=== PATIENT | female | born 1945 | race Caucasian/White ===

== ENCOUNTER → 2016-10-18 | Outpatient (CLI) | payer BC ==
[~2016-10-18] MED LIST: ASCA500 PO; ATOR-22 PO; CALC1TAB9 PO; CHOL100010 PO; CMD5 PO; CYAN10005 PO; DIPH-416 PO; EPP3/2 IM; FERR1TAB23 PO; FLCP TD; MAGN1TAB41 PO; MULT-506 PO; NXM/40 PO; NYSTOIN TOP; OMEG10007 PO; POTA-335 PO; TIZA2CAP PO; WARF-283 PO
[2016-10-18 12:06] LABS: CHOLESTEROL/HDL RATIO 2.2
== END | disposition home or self-care (01) ==
LOC: C.LAB 09:32
PROVIDERS: ATTEND Internal Medicine Cardiovascular Disease
DX: E78.5 Hyperlipidemia, unspecified (principal)

== ENCOUNTER → 2016-11-20 | Outpatient (CLI) | payer BC ==
[2016-11-20 09:56] LABS: BASO % 0.2 %; BASO ABS # 0.02 K/uL (0-0.2); COMPLETE YES; EOS % 1.6 %; HEMATOCRIT 39.7 % (37-47); IG% 0.1 %; LYMPH % 33.9 %; LYMPH ABS # 2.81 K/uL (1.2-3.4); MEAN CELL VOLUME 85.6 fL (80-100); MEAN CORPUSCULAR HEMOGLOBIN 28.2 pg (25-34); MEAN PLATELET VOLUME 10.6 fL (7.4-10.4); MONO % 6.2 %; PLATELET COUNT 230 K/uL (130-400); RED BLOOD COUNT 4.64 M/uL (4.2-5.4); WHITE BLOOD COUNT 8.29 K/uL (4.8-10.8)
[2016-11-20 10:32] LABS: ALT/SGPT 29 U/L (12-78); AST/SGOT 16 U/L (15-37); BLOOD UREA NITROGEN 22 mg/dl (7-18); BUN/CREATININE RATIO 25.2 (10-20); CALCIUM 9.3 mg/dl (8.5-10.1); CARBON DIOXIDE 27 mmol/L (21-32); CHLORIDE 107 mmol/L (98-107); CHOLESTEROL 145 mg/dl (0-200); CREATININE 0.88 mg/dl (0.60-1.20); GLUCOSE 86 mg/dl (70-99); POTASSIUM 4.3 mmol/L (3.5-5.1); SODIUM 142 mmol/L (136-145); TRIGLYCERIDES 206 mg/dl (0-150); VERY LOW DENSITY LIPOPROT CALC 41 mg/dl
[2016-11-20 10:35] LABS: ALB/GLOB RATIO 0.9 (0.9-2); ALKALINE PHOSPHATASE 43 U/L (45-117); CHOLESTEROL/HDL RATIO 2.9; HDL CHOLESTEROL 50 mg/dl; LDL CHOLESTEROL CALCULATED 54 mg/dl
[2016-11-20 11:07] LABS: ESTIMATED AVERAGE GLUCOSE 123 mg/dl; HA1C FLAG Normal (Normal)
== END | disposition home or self-care (01) ==
LOC: C.LAB 09:15
PROVIDERS: ATTEND Internal Medicine
DX: E53.8 Deficiency of other specified B group vitamins (principal); E55.9 Vitamin D deficiency, unspecified; E78.1 Pure hyperglyceridemia; K50.90 Crohn's disease, unspecified, without complications; R73.9 Hyperglycemia, unspecified

== ENCOUNTER → 2017-03-23 | Outpatient (CLI) | payer BC ==
[2017-03-23 10:15] LABS: CHOLESTEROL/HDL RATIO 2.6
== END | disposition home or self-care (01) ==
LOC: C.LAB 08:51
PROVIDERS: ATTEND Internal Medicine Cardiovascular Disease
DX: E78.5 Hyperlipidemia, unspecified (principal)

== ENCOUNTER → 2017-06-15 | Outpatient (CLI) | payer BC ==
--- NOTE | 2017-06-15 14:15 | MAMMOGRAPHY REPORT ---
BILATERAL DIGITAL SCREENING MAMMOGRAM TOMOSYNTHESIS WITH CAD: 06/15/2017 CLINICAL HISTORY: Routine screening. TECHNIQUE: Breast tomosynthesis in addition to standard 2D mammography was performed. Current study was also evaluated with a Computer Aided Detection (CAD) system. COMPARISON: Comparison is made to exams dated: 06/12/2016 mammogram, 06/19/2015 ultrasound, 5 mammogram, 06/07/2015 mammogram, 06/06/2014 mammogram, and 05/30/2013 mammogram - [facility]. BREAST COMPOSITION: There are scattered areas of fibroglandular density in both breasts. FINDINGS: There are stable benign-appearing microcalcifications bilaterally. No suspicious mass, arc hitectural distortion or cluster of suspicious microcalcifications is seen. IMPRESSION: ACR BI-RADS CATEGORY 1: NEGATIVE There is no mammographic evidence of malignancy. A 1 year screening mammogram is recommended. The pa tient will receive written notification of the results. Approximately 10% of breast cancers are not detected with mammography. A negative mammographic report should not delay biopsy if a clinically suggestive mass is present. Svitlana Gusman M.D. ay/:06/15/2017 09:39:29 Center Human Resources Manager: Kenny VINES(Per)(M), [facility] letter sent: Normal 1/2 BI-RADS Code: ACR BI-RADS Category 1: Negative
== END | disposition home or self-care (01) ==
LOC: C.MAMM 09:11
PROVIDERS: ATTEND Obstetrics & Gynecology
DX: Z12.31 Encounter for screening mammogram for malignant neoplasm of breast (principal)

== ENCOUNTER → 2017-09-28 | Outpatient (CLI) | payer BC ==
[~2017-09-28] MED LIST changes: -CMD5 PO; +WARF5TAB7 PO
== END | disposition home or self-care (01) ==
LOC: C.PAPS 14:00
PROVIDERS: ATTEND Obstetrics & Gynecology
DX: Z01.419 Encounter for gynecological examination (general) (routine) without abnormal findings (principal)

== ENCOUNTER → 2017-10-12 | Outpatient (CLI) | payer BC | END | disposition home or self-care (01) | LOC: C.LAB 09:23 | PROVIDERS: ATTEND Internal Medicine Cardiovascular Disease | DX: E78.5 Hyperlipidemia, unspecified (principal) ==

== ENCOUNTER → 2017-11-17 | Outpatient (CLI) | payer BC ==
[2017-11-17 10:09] LABS: BASO % 0.3 %; BASO ABS # 0.02 K/uL (0-0.2); EOS % 1.1 %; EOS ABS # 0.08 K/uL (0-0.5); HEMATOCRIT 45.1 % (37-47); HEMOGLOBIN 14.9 g/dL (12.0-16.0); IG# 0.01 K/uL (0.00-0.02); LYMPH ABS # 2.97 K/uL (1.2-3.4); MEAN CELL VOLUME 88.8 fL (80-100); MEAN CORPUSCULAR HEMOGLOBIN 29.3 pg (25-34); MEAN PLATELET VOLUME 10.7 fL (7.4-10.4); MONO % 5.1 %; MONO ABS # 0.38 K/uL (0.11-0.59); NEUT % 53.4 %; NEUT ABS # 3.96 K/uL (1.4-6.5); PLATELET COUNT 223 K/uL (130-400); RED CELL DISTRIBUTION WIDTH CV 13.7 % (11.5-14.5); RED CELL DISTRIBUTION WIDTH SD 44.7 fL (36.4-46.3); WHITE BLOOD COUNT 7.42 K/uL (4.8-10.8)
[2017-11-17 10:39] LABS: ALBUMIN 3.4 gm/dl (3.4-5.0); ALT/SGPT 29 U/L (12-78); BLOOD UREA NITROGEN 19 mg/dl (7-18); CALCIUM 9.8 mg/dl (8.5-10.1); CARBON DIOXIDE 28 mmol/L (21-32); CHOLESTEROL 166 mg/dl (0-200); CREATININE 0.94 mg/dl (0.60-1.20); GLUCOSE 90 mg/dl (70-99); POTASSIUM 4.6 mmol/L (3.5-5.1); SODIUM 138 mmol/L (136-145)
[2017-11-17 10:42] LABS: ALKALINE PHOSPHATASE 47 U/L (45-117); AST/SGOT 15 U/L (15-37); LDL CHOLESTEROL CALCULATED 56 mg/dl; TOTAL PROTEIN 7.6 gm/dl (6.4-8.2)
== END | disposition home or self-care (01) ==
LOC: C.LAB 09:14
PROVIDERS: ATTEND Internal Medicine
DX: D50.9 Iron deficiency anemia, unspecified (principal); E53.8 Deficiency of other specified B group vitamins; E55.9 Vitamin D deficiency, unspecified; K50.90 Crohn's disease, unspecified, without complications; E78.1 Pure hyperglyceridemia

== ENCOUNTER 2020-12-23 20:31 | Inpatient (IN) ==
[2020-12-23] MEDS ORDERED: ACETAMINOPHEN 500 MG TAB PO STA (21:22)
[2020-12-23 21:28] LABS: Hemoglobin 7.8 g/dL (12.0-16.0); Mean Corpuscular Hemoglobin 29.3 pg (25-34); Mean Corpuscular Hgb Conc 32.5 g/dL (32-36); Mean Corpuscular Volume 90.2 fL (80-100); Mean Platelet Volume 11.6 fL (7.4-10.4); Nucleated RBC # (auto) 0.04 K/uL (0-0); Nucleated RBC % (auto) 0.2 %; Platelet Count 599 K/uL (130-400); RDW Coefficient of Variation 18.9 % (11.5-14.5); RDW Standard Deviation 60.6 fL (36.4-46.3); Red Blood Count 2.66 M/uL (4.2-5.4); White Blood Count 16.78 K/uL (4.8-10.8)
[2020-12-23] MEDS: SODIUM CHLORIDE 0.9% 1000ML 1,000 ML IV ONE ×2 (21:32→22:23)
[2020-12-23 21:40] LABS: Potassium 4.7 mmol/L (3.5-5.1)
[2020-12-23 21:41] LABS: Aspartate Aminotransferase 108 U/L (15-37)
[2020-12-23 21:42] LABS: Alanine Aminotransferase 77 U/L (12-78); Albumin Globulin Ratio 0.3 (0.9-2); Albumin Level 1.8 gm/dl (3.4-5.0); Alkaline Phosphatase 878 U/L (45-117); BUN Creatinine Ratio 21.5 (10-20); Bilirubin,Total 6.5 mg/dl (0.2-1); Blood Urea Nitrogen 45 mg/dl (7-18); Carbon Dioxide 15 mmol/L (21-32); Chloride 105 mmol/L (98-107); Creatinine Clr Calc Pharmacy 24.6 ml/min; Est GFR (African American) 26.2; Est GFR (Non-African American) 22.6; Globulin 5.9 gm/dl (2.5-4.0); Glucose 281 mg/dl (70-99); Sodium 135 mmol/L (136-145); Total Protein 7.7 gm/dl (6.4-8.2); Troponin I < 0.015 ng/ml (0-0.045)
[2020-12-23 22:04] LABS: Basophils # (auto) 0.02 K/uL (0-0.2); Basophils % (auto) 0.1 %; Dohle Bodies 1+; Immature Granulocytes # (auto) 0.96 K/uL (0.00-0.02); Immature Granulocytes % (auto) 5.7 %; Lymphocytes # (auto) 1.89 K/uL (1.2-3.4); Lymphocytes % (auto) 11.3 %; Monocytes # (auto) 1.17 K/uL (0.11-0.59); Neutrophils # (auto) 12.74 K/uL (1.4-6.5); Neutrophils % (auto) 75.9 %; Polychromasia 1+
[2020-12-23] MEDS ORDERED: metroNIDAZOLE 500 MG/100 ML BAG IV STA (22:08)
[2020-12-23] MEDS ORDERED: SODIUM CHLORIDE 0.9% 1000ML 1,000 ML IV ONE (22:08)
[2020-12-23] MEDS ORDERED: CEFEPIME 2,000 MG/20 ML VIAL IV STA (22:08)
--- NOTE | 2020-12-23 22:31 | Emergency Department Note ---
Impression & Plan Sepsis, Anemia, AGUILAR (acute kidney injury), Acidosis, lactic, Jaundice, Acute dehydration ED Provider Note INFORMANT: Patient ED PROVIDER(S): Mario Sethi MD CHIEF COMPLAINT: Weakness PLAN: Disposition: Admitted Condition: Good Outpatient prescription management: none Referral: None MEDICAL DECISION MAKING: Patient presented to emergency department because of weakness. She was febrile and tachycardic. This was concerning due to a history of sepsis. She had no abdominal pain. She notes that she has had a poor appetite and has not been drinking fluids. She states this happens from time to time in between chemotherapy. Clinically she appears dehydrated. An IV was established. Cultures obtained. She was given IV fluids. Blood work revealed a leukocytosis and anemia. The patient's chemistry panel was concerning for acute renal failure with a marked elevation of her creatinine. Her BUN was elevated as well concerning for dehydration. The patient had an elevated lactic acidosis. She was given empiric cefepime and Flagyl. Chest x-ray did not reveal any evidence of pneumonia. LFTs show slight increase in her bilirubin. Catheter urinalysis specimen obtained. Patient will need further management in the hospital. Consultation was made with Dr. Lorenzo Cortes of the [facility] service. He asked for the patient have a consultation with GI. Initially Dr. Mayers was consulted as he was on-call for the ER however the patient has been seen by [facility] in the past. This was discovered on record review. I did discuss the case with Dr. Castellanos. He was concerned about the possibility of a stent problem and asked for the patient be transferred to [facility] as DrJeanne Eckert is out of town and Dr. Castellanos does not have ERCP privileges. I did discuss this with the patient and her . They adamantly refused transfer to [facility] as she would like to stay here for treatment and see if any problems develop. I did note to her as well as her that she could become septic, have stent complications, and and suffer serious complications including by refusing transfer. She and her are understanding these risks and still would like to stay here. I did notify Dr. Cortes. He will evaluate the patient for further management. Triage Nursing notes reviewed and agree them. Vital Signs: reviewed and remarkable for fever and tachycardia Differential diagnosis: Sepsis, UTI, pneumonia, metabolic, electrolyte abnormalities, cardiac sources, intracerebral event, toxicologic, neurologic, as well as other pathologies. Diagnostics interpreted by me: ECG: Twelve-lead ECG reveals sinus tachycardia [address] elevation or depression. No PACs or PVCs. Normal axis and QRS. Cardiac Monitoring: Cardiac monitoring ordered by me: The patient was placed on continuous cardiac monitoring and observed. It revealed a normal sinus rhythm at 92 beats per minute without ectopy or evidence of dysrhythmia. Imaging studies: Chest x-ray. Findings: A chest x-ray was performed and revealed no pneumothorax, effusion, infiltrate, pulmonary edema, free air under the diaphragm, or wide mediastinum. Impression: No acute disease. CT scan of the chest was performed and revealed no evidence of pneumonia, pneumothorax or other acute pathology. CT scan of the abdomen pelvis reveals a biliary stent in place. Abnormalities of the liver noted. Ostomy present. I refer you to the EMR for further details. HPI: The patient is a 75 year old female with a history of gallbladder cancer who presents to the Emergency Room with complaints of weakness. This started over the last few days and is worsening tonight to the point where she could not walk up the steps. The patient also notes the following associated symptoms, dry mouth, poor oral intake. Patient is on alternating weeks of chemotherapy. This was her off week. The patient has found no relieving factors. Current pain is rated as 0/10. Patient has a history of sepsis from urinary source. Sh anoop does have a biliary stent in place. She notes her bilirubin numbers have been decreasing. She has had no abdominal pain. She finished a course of Levaquin and Flagyl about 2 weeks ago for the previous sepsis. Pt denies LOC, headache, fevers, chills, diaphoresis, visual changes, neck pain, chest pain, breathing difficulties, nausea, vomiting, abdominal pain, back pain, melena, hematochezia, new urinary symptoms, numbness, lymphadenopathy, rash, or other complaints. ROS: See above HPI for pertinent positives & negatives. A total of 10 systems reviewed and were otherwise negative. PAST MEDICAL HISTORY:See Below , gallbladder cancer, sepsis, anemia PAST SURGICAL HISTORY:See Below, biliary stent FAMILY HISTORY:See Below SOCIAL HISTORY:See Below, HOME MEDICATIONS:See Below ALLERGIES:See Below VITALS:See Below PHYSICAL EXAMINATION: GENERAL: Awake, alert, jaundiced-appearing, dehydrated, in no distress HENT: Normocephalic, atraumatic. Oropharynx unremarkable Except for dry mucous membranes EYES: Normal conjunctiva. Sclera non-icteric. NECK: Inspection normal. Non-tender. Supple. No nuchal rigidity. FROM. No masses. RESPIRATORY: Clear to auscultation. No wheezes. No rales. Normal respiratory effort. CARDIAC: Tachycardic rate. Normal rhythm. No murmurs. No rubs. Extremities warm and well perfused. Pulses equal. No JVD. GI: Soft, non-distended. No tenderness to palpation. No rebound or guarding. No masses. RECTAL: Deferred. MUSCULOSKELETAL: Atraumatic. Chest examination reveals no tenderness. The back is symmetrical on inspection without obvious abnormality. There is no CVA tenderness to palpation. No joint edema. LOWER EXTREMITIES: Calves are equal size bilaterally and non-tender. No edema. No discoloration. NEURO: Normal sensorium. No sensory or motor deficits noted. SKIN: No rash. Moderate jaundice noted. CRITICAL CARE: I have personally spent greater than 40 minutes of critical care time in the direct management of this patient. This includes bedside care, interpretation of diagnostic studies, and testing, discussion with consultants, patient, and family members, and other required patient management activities. This 30 minutes is in excess of all separately billable procedures. Mario Sethi MD Past Med/Surg History Medical History (Updated 12/23/20 @ 22:25 by Mario Sethi MD) Basal cell carcinoma of skin Cerebral infarction Cervical radiculopathy Hepatitis C virus Nummular eczema Surgical History H/O abdominal surgery History of oral surgery tooth extraction S/P appendectomy S/P shoulder surgery Family History Father Myocardial infarction Gastric cancer Mother Atrial fibrillation Congestive heart failure Other Cancer Diabetes Denies family history of Ovarian cancer Prostate cancer Breast cancer Colorectal cancer Social History Smoking Status: Never smoker Hx Alcohol Use: Yes Hx Substance Use: No Preferred Language: Greek Visual Impairment: No Limitations Hearing Ability: Normal Plastic Shaper Required: No Beliefs That Will Affect Care: None marital status: Current Living Situation: Spouse current occupational status: retired Feels Safe at Home: Yes Childhood Exposure to Second-Hand Smoke: Yes Dental Care, Regularly: Yes Physical Activity Frequency: Daily Seatbelt Use: always Sunscreen Use: Yes Allergies Allergies Allergy/AdvReac Type Severity Reaction Status Date / Time Iodinated Contrast Media Allergy Severe Shortness Verified 12/23/20 21:30 of Breath bee venom protein (honey bee) Allergy Intermediate DYSPNEA/SWE Verified 12/23/20 21:30 LLING Penicillins Allergy Intermediate DYSPNEA/RENEA Verified 12/23/20 21:30 PHORESIS tramadol Allergy Unknown Nauseated Verified 12/23/20 21:30 codeine AdvReac Intermediate NAUSEA/VOMITING Verified 12/23/20 21:30 (TOLERATES VICODIN) oxycodone AdvReac Intermediate NAUSEA/VOMITING Verified 12/23/20 21:30 (TOLERATES VICODIN) sulfite AdvReac Intermediate GI sxs Verified 12/23/20 21:30 Home Meds Home Medications Medication Instructions Recorded Confirmed ascorbic acid (vitamin C) 500 mg PO DAILY #0 01/31/10 12/23/20 ferrous sulfate 325 mg PO TIDM #0 03/21/15 12/23/20 cholecalciferol (vitamin D3) 125 5,000 units PO DAILY 09/15/18 12/23/20 mcg (5,000 unit) capsule riboflavin (vitamin B2) 50 mg 50 mg PO QAM 09/08/19 12/23/20 tablet hydromorphone 2 mg PO Q4 PRN 11/11/20 12/23/20 ondansetron 4 mg PO Q4 PRN 11/11/20 12/23/20 atorvastatin 40 mg tablet 20 mg PO HS tab 12/12/20 12/23/20 calcium carbonate 500 mg (1,250 2 tab PO BID 12/12/20 12/23/20 mg)-vitamin D3 200 unit tablet cyanocobalamin (vitamin B-12) 1,000 mcg PO 5XWK #0 tab 12/12/20 12/23/20 1,000 mcg tablet magnesium oxide 400 mg (241.3 mg 400 mg PO TID #0 tab 12/12/20 12/23/20 magnesium) tablet multivitamin with minerals 1 tab PO BID tab 12/12/20 12/23/20 potassium chloride 20 mEq 20 meq PO BID tab 12/12/20 12/23/20 tablet,extended release(part/cryst) esomeprazole magnesium 40 mg PO QAM 12/23/20 12/23/20 rivaroxaban 10 mg PO QPM 12/23/20 12/23/20 Previous Rx's Medication Instructions Recorded epinephrine 0.3 mg/0.3 mL 0.3 mg IM Q4H PRN #1 ea 09/03/20 injection, auto-injector Results & Data (ED) Vital Signs Vital Signs - 24 hr 12/23/20 20:23 12/23/20 20:36 12/23/20 20:41 Temperature 39.5 C H Temperature Source Oral Pulse Rate 127 H 123 H 124 H Pulse Rate from SpO2 Sensor Pulse Rhythm Regular Pulse Strength Normal Respiratory Rate 22 46 H 35 H Respiratory Effort / Characteristics Non-Labored Respiratory Depth Normal Respiratory Pattern Regular Blood Pressure 130/61 130/61 Blood Pressure Mean 84 84 Pulse Oximetry 96 Oxygen Delivery Method Room Air Oxygen Flow Rate Sepsis Recent Fever Within 48 Hours Yes Sepsis New/Unexplained Change in Mental Status No Sepsis Action Taken by Nursing No Action Required 12/23/20 20:50 12/23/20 20:53 12/23/20 21:00 Temperature Temperature Source Pulse Rate 117 H 113 H Pulse Rate from SpO2 Sensor 167 H 114 H Pulse Rhythm Pulse Strength Respiratory Rate 30 H 39 H Respiratory Effort / Characteristics Respiratory Depth Respiratory Pattern Blood Pressure Blood Pressure Mean Pulse Oximetry 80 L 97 Oxygen Delivery Method Room Air Oxygen Flow Rate 98 Sepsis Recent Fever Within 48 Hours Sepsis New/Unexplained Change in Mental Status Sepsis Action Taken by Nursing 12/23/20 21:10 12/23/20 21:20 12/23/20 21:30 Temperature Temperature Source Pulse Rate 145 H 108 H Pulse Rate from SpO2 Sensor 114 H 108 H Pulse Rhythm Pulse Strength Respiratory Rate 35 H 33 H 16 Respiratory Effort / Characteristics Respiratory Depth Respiratory Pattern Blood Pressure Blood Pressure Mean Pulse Oximetry 94 98 Oxygen Delivery Method Oxygen Flow Rate Sepsis Recent Fever Within 48 Hours Sepsis New/Unexplained Change in Mental Status Sepsis Action Taken by Nursing 12/23/20 21:40 12/23/20 21:50 12/23/20 22:00 Temperature Temperature Source Pulse Rate 107 H 101 H 100 H Pulse Rate from SpO2 Sensor 106 H 100 H 99 H Pulse Rhythm Pulse Strength Respiratory Rate 30 H 35 H 36 H Respiratory Effort / Characteristics Respiratory Depth Respiratory Pattern Blood Pressure Blood Pressure Mean Pulse Oximetry 95 95 95 Oxygen Delivery Method Oxygen Flow Rate Sepsis Recent Fever Within 48 Hours Sepsis New/Unexplained Change in Mental Status Sepsis Action Taken by Nursing 12/23/20 22:10 12/23/20 22:20 12/23/20 22:30 Temperature Temperature Source Pulse Rate 95 H 97 H 93 H Pulse Rate from SpO2 Sensor 96 H 97 H 93 H Pulse Rhythm Pulse Strength Respiratory Rate 37 H 31 H 34 H Respiratory Effort / Characteristics Respiratory Depth Respiratory Pattern Blood Pressure 132/65 Blood Pressure Mean 87 Pulse Oximetry 95 96 95 Oxygen Delivery Method Oxygen Flow Rate Sepsis Recent Fever Within 48 Hours Sepsis New/Unexplained Change in Mental Status Sepsis Action Taken by Nursing 12/23/20 22:31 12/23/20 22:40 12/23/20 22:45 Temperature Temperature Source Pulse Rate 94 H 100 H Pulse Rate from SpO2 Sensor 101 H 95 H 96 H Pulse Rhythm Pulse Strength Respiratory Rate 27 H 31 H 30 H Respiratory Effort / Characteristics Respiratory Depth Respiratory Pattern Blood Pressure 121/61 Blood Pressure Mean 81 Pulse Oximetry 94 91 88 L Oxygen Delivery Method Oxygen Flow Rate Sepsis Recent Fever Within 48 Hours Sepsis New/Unexplained Change in Mental Status Sepsis Action Taken by Nursing 12/23/20 22:50 12/23/20 23:00 12/23/20 23:01 Temperature Temperature Source Pulse Rate 93 H 108 H 96 H Pulse Rate from SpO2 Sensor Pulse Rhythm Pulse Strength Respiratory Rate 30 H 27 H 30 H Respiratory Effort / Characteristics Respiratory Depth Respiratory Pattern Blood Pressure 151/68 H Blood Pressure Mean 95 Pulse Oximetry Oxygen Delivery Method Oxygen Flow Rate Sepsis Recent Fever Within 48 Hours Sepsis New/Unexplained Change in Mental Status Sepsis Action Taken by Nursing 12/23/20 23:10 12/23/20 23:15 12/23/20 23:20 Temperature Temperature Source Pulse Rate 90 88 87 Pulse Rate from SpO2 Sensor 90 87 87 Pulse Rhythm Pulse Strength Respiratory Rate 29 H 29 H 25 H Respiratory Effort / Characteristics Respiratory Depth Respiratory Pattern Blood Pressure 120/60 Blood Pressure Mean 80 Pulse Oximetry 95 96 95 Oxygen Delivery Method Oxygen Flow Rate Sepsis Recent Fever Within 48 Hours Sepsis New/Unexplained Change in Mental Status Sepsis Action Taken by Nursing 12/23/20 23:30 12/23/20 23:31 12/23/20 23:40 Temperature Temperature Source Pulse Rate 92 H 94 H 112 H Pulse Rate from SpO2 Sensor 92 H 94 H Pulse Rhythm Pulse Strength Respiratory Rate 22 21 34 H Respiratory Effort / Characteristics Respiratory Depth Respiratory Pattern Blood Pressure 101/68 Blood Pressure Mean 79 Pulse Oximetry 96 96 Oxygen Delivery Method Oxygen Flow Rate Sepsis Recent Fever Within 48 Hours Sepsis New/Unexplained Change in Mental Status Sepsis Action Taken by Nursing 12/23/20 23:41 12/23/20 23:42 12/23/20 23:45 Temperature Temperature Source Pulse Rate Pulse Rate from SpO2 Sensor Pulse Rhythm Pulse Strength Respiratory Rate Respiratory Effort / Characteristics Respiratory Depth Respiratory Pattern Blood Pressure 128/62 132/61 133/64 Blood Pressure Mean 84 84 87 Pulse Oximetry Oxygen Delivery Method Oxygen Flow Rate Sepsis Recent Fever Within 48 Hours Sepsis New/Unexplained Change in Mental Status Sepsis Action Taken by Nursing 12/24/20 00:00 12/24/20 00:22 12/24/20 00:30 Temperature Temperature Source Pulse Rate 92 H Pulse Rate from SpO2 Sensor 92 H Pulse Rhythm Pulse Strength Respiratory Rate 29 H Respiratory Effort / Characteristics Respiratory Depth Respiratory Pattern Blood Pressure 123/70 Blood Pressure Mean 87 Pulse Oximetry 97 Oxygen Delivery Method Room Air Oxygen Flow Rate Sepsis Recent Fever Within 48 Hours Sepsis New/Unexplained Change in Mental Status Sepsis Action Taken by Nursing Laboratory Data Result diagrams: 12/23/20 20:50 12/23/20 20:50 Lab Results 12/23/20 12/23/20 12/23/20 Range/Units 20:50 20:50 21:34 WBC 16.78 H (4.8-10.8) K/uL RBC 2.66 L (4.2-5.4) M/uL Hgb 7.8 L (12.0-16.0) g/dL Hct 24.0 L (37-47) % MCV 90.2 (80-100) fL MCH 29.3 (25-34) pg MCHC 32.5 (32-36) g/dL RDW Std Deviation 60.6 H (36.4-46.3) fL RDW Coeff of Shai 18.9 H (11.5-14.5) % Plt Count 599 H (130-400) K/uL MPV 11.6 H (7.4-10.4) fL Immature Gran % (Auto) 5.7 % Neut % (Auto) 75.9 % Lymph % (Auto) 11.3 % Rains % (Auto) 7.0 % Eos % (Auto) 0.0 % Baso % (Auto) 0.1 % Neut # (Auto) 12.74 H (1.4-6.5) K/uL Lymph # (Auto) 1.89 (1.2-3.4) K/uL Rains # (Auto) 1.17 H (0.11-0.59) K/uL Eos # (Auto) 0.00 (0-0.5) K/uL Baso # (Auto) 0.02 (0-0.2) K/uL Immature Gran # (Auto) 0.96 H (0.00-0.02) K/uL Absolute Nucleated RBC 0.04 H (0-0) K/uL Nucleated RBC % (auto) 0.2 % Dohle Bodies 1+ Polychromasia 1+ Sodium 135 L (136-145) mmol/L Potassium 4.7 (3.5-5.1) mmol/L Chloride 105 (98-107) mmol/L Carbon Dioxide 15 L (21-32) mmol/L Anion Gap 16.0 H (3-11) BUN 45 H (7-18) mg/dl Creatinine 2.10 H (0.6-1.2) mg/dl Est Cr Clr Drug Dosing 24.6 ml/min Est GFR ( Amer) 26.2 Est GFR (Non-Af Amer) 22.6 BUN/Creatinine Ratio 21.5 H (10-20) Glucose 281 H (70-99) mg/dl Lactate 4.0 H* (0.4-2.0) mmol/L Calcium 10.0 (8.5-10.1) mg/dl Total Bilirubin 6.5 H (0.2-1) mg/dl AST 108 H (15-37) U/L ALT 77 (12-78) U/L Alkaline Phosphatase 878 H (45-117) U/L Troponin I < 0.015 (0-0.045) ng/ml Total Protein 7.7 (6.4-8.2) gm/dl Albumin 1.8 L (3.4-5.0) gm/dl Globulin 5.9 H (2.5-4.0) gm/dl Albumin/Globulin Ratio 0.3 L (0.9-2) COVID-19 Eval Order SARS-CoV-2 (PCR) (Negative) Influenza Type A (PCR) (Neg) Influenza Type B (PCR) (Neg) RSV (RT-PCR) (Neg) 12/23/20 12/23/20 12/23/20 Range/Units 21:40 21:40 23:47 WBC (4.8-10.8) K/uL RBC (4.2-5.4) M/uL Hgb (12.0-16.0) g/dL Hct (37-47) % MCV (80-100) fL MCH (25-34) pg MCHC (32-36) g/dL RDW Std Deviation (36.4-46.3) fL RDW Coeff of Shai (11.5-14.5) % Plt Count (130-400) K/uL MPV (7.4-10.4) fL Immature Gran % (Auto) % Neut % (Auto) % Lymph % (Auto) % Rains % (Auto) % Eos % (Auto) % Baso % (Auto) % Neut # (Auto) (1.4-6.5) K/uL Lymph # (Auto) (1.2-3.4) K/uL Rains # (Auto) (0.11-0.59) K/uL Eos # (Auto) (0-0.5) K/uL Baso # (Auto) (0-0.2) K/uL Immature Gran # (Auto) (0.00-0.02) K/uL Absolute Nucleated RBC (0-0) K/uL Nucleated RBC % (auto) % Dohle Bodies Polychromasia Sodium (136-145) mmol/L Potassium (3.5-5.1) mmol/L Chloride (98-107) mmol/L Carbon Dioxide (21-32) mmol/L Anion Gap (3-11) BUN (7-18) mg/dl Creatinine (0.6-1.2) mg/dl Est Cr Clr Drug Dosing ml/min Est GFR ( Amer) Est GFR (Non-Af Amer) BUN/Creatinine Ratio (10-20) Glucose (70-99) mg/dl Lactate 2.2 H* (0.4-2.0) mmol/L Calcium (8.5-10.1) mg/dl Total Bilirubin (0.2-1) mg/dl AST (15-37) U/L ALT (12-78) U/L Alkaline Phosphatase (45-117) U/L Troponin I (0-0.045) ng/ml Total Protein (6.4-8.2) gm/dl Albumin (3.4-5.0) gm/dl Globulin (2.5-4.0) gm/dl Albumin/Globulin Ratio (0.9-2) COVID-19 Eval Order CovFluRsv at [facility] SARS-CoV-2 (PCR) NEGATIVE (Negative) Influenza Type A (PCR) Negative (Neg) Influenza Type B (PCR) Negative (Neg) RSV (RT-PCR) Negative (Neg) Administered Medications Discontinued Medications Acetaminophen (Acetaminophen 500 Mg Tab) 1,000 mg PO NOW STA Stop: 12/23/20 21:23 Last Admin: 12/23/20 21:33 Dose: 1,000 mg Documented by: [id number] Sodium Chloride (Nss 1000ml) 1,000 mls @ 999 mls/hr IV .Q1H1M ONE Stop: 12/23/20 22:22 Last Infusion: 12/24/20 00:10 Dose: 0 mls/hr Documented by: [id number] Admin: 12/23/20 22:23 Dose: 999 mls/hr Documented by: [id number] Infusion: 12/23/20 22:23 Dose: 999 mls/hr Documented by: [id number] Admin: 12/23/20 21:32 Dose: 999 mls/hr Documented by: [id number] Sodium Chloride (Nss 1000ml) 1,000 mls @ 999 mls/hr IV .Q1H1M ONE Stop: 12/23/20 23:08 Last Admin: 12/24/20 00:11 Dose: 999 mls/hr Documented by: [id number] Cefepime HCl (Maxipime) 2,000 mg in 20 mls @ 5 mls/min IV NOW STA; Protocol Stop: 12/23/20 22:11 Last Admin: 12/23/20 22:23 Dose: 5 mls/min Documented by: [id number] Metronidazole (Flagyl) 500 mg in 100 mls @ 100 mls/hr IV NOW STA Stop: 12/23/20 23:07 Last Infusion: 12/24/20 00:10 Dose: 0 mls/hr Documented by: [id number] Admin: 12/23/20 22:23 Dose: 100 mls/hr Documented by: [id number] Discharge Plan Visit Data Chief Complaint: Weakness Stated Complaint: WEAKNESS ED Provider: Mario Sethi Discharge Problem: Sepsis, Anemia, AGUILAR (acute kidney injury), Acidosis, lactic, Jaundice, Acute dehydration Discharge Instructions Interventions: ED Discharge Assessment Last Done: 12/24/20 00:30 Forms Stand Alone Forms: My [facility] Prescriptions Prescriptions: No Action cholecalciferol (vitamin D3) 5,000 unit capsule 5,000 units PO DAILY RF: 0 riboflavin (vitamin B2) 50 mg tablet 50 mg PO QAM RF: 0 ascorbic acid (vitamin C) 500 mg Tablet 500 mg PO DAILY Qty: 0 RF: 0 ferrous sulfate 325 mg (65 mg iron) Tablet 325 mg PO TIDM Qty: 0 RF: 0 epinephrine [EpiPen] 0.3 mg/0.3 mL auto-injector 0.3 mg IM Q4H PRN (Reason: Allergic Reaction) Qty: 1 RF: 3 cyanocobalamin (vitamin B-12) 1,000 mcg tablet 1,000 mcg PO 5XWK Qty: 0 RF: 0 magnesium oxide 400 mg (241.3 mg magnesium) tablet 400 mg PO TID Qty: 0 RF: 0 potassium chloride 20 mEq tablet,ER particles/crystals 20 meq PO BID RF: 0 hydromorphone 2 mg tablet 2 mg PO Q4 PRN (Reason: Pain) RF: 0 ondansetron 4 mg tablet,disintegrating 4 mg PO Q4 PRN (Reason: Nausea And Vomiting) RF: 0 atorvastatin 40 mg tablet 20 mg PO HS RF: 0 calcium carbonate-vitamin D3 [Calcium 500 + D] 500 mg(1,250mg) -200 unit tablet 2 tab PO BID RF: 0 multivitamin with minerals Tablet 1 tab PO BID RF: 0 esomeprazole magnesium 40 mg capsule,delayed release(DR/EC) 40 mg PO QAM RF: 0 rivaroxaban 10 mg tablet 10 mg PO QPM RF: 0 Referrals Referrals: ProBrayan MD [Primary Care Provider] -
[2020-12-23 22:37] LABS: Influenza A virus by PCR Negative (Neg); Influenza B virus by PCR Negative (Neg); RSV by PCR Negative (Neg); SARS CoV2 RNA(COVID-19) InHosp NEGATIVE (Negative)
--- NOTE | 2020-12-24 00:44 | History & Physical Report ---
Date of Service December 24, 2020 Assessment & Plan Admission and Anticipated Discharge Date Admission Date: 75 yo F w/ pMHx. 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 dehydration - Admit PCU Elevated bilirubin and signs of infection, concern for obstruction although this may represent dehydration or a mixed picture febrile 39.5, WBC 16.78, Lactate 2.2, t bili 6.5, ast 108 case discussed with GI, concern that this may represent stent occlusion or require IR intervention, discussed with patient and they did not want to be transported to [place] again - consulted placed for GI - placed on Cefepime, Flagyl for concern of infection - IVF 125/h X2 bags - recheck CMP w/ AM labs - f/u blood cultures Anemia, acute on chronic baseline hgb 10 currently 7.[address] ab/p ordered w/ finding of decreased size of abdominal hematoma - hold in Xarelto for now, if HGB stable or improved then consider restarting - FOB ordered - type and screen ordered - continue home iron - recheck am CBC PFO on Xarelto - held Xarelto due to concern for bleed, restart as above CXR w/ concern for right sided pneumothorax, tachypnea - ordered CT chest w/o pneumothorax seen Malnutrition - albumin 1.8 - NPO now for concern of decompensation - restart diet in AM if patient is clinically improved and consider boost shakes Gallbladder cancer, unclear chemotherapeutic regimen - mass seen on CT A/P may require further imaging Reflux - continue home PPI Code: full Diet: NPO DVT: holding Xarelto for concern of bleed Dispo: PCU History of Present Illness Chief Complaint: fatigue Primary Care Provider: MD Gómez Bondruss Brunner is here with her for concern of progressive weakness. She was feeling weak and unable to walk up the stairs. She was shaking when she was drinking cold boost and Pedialyte. She has not been eating or drinking as well over the last couple days and had clear urine on Thursday but it has since become darker. She was eating well one week prior and notes that her appetite will come and go. She has gallbladder cancer and gets care here in [place] with Dr. Mckeon. She get chemotherapy for 2 weeks on and 1 week off. The plan was for her to have chemo start again on Thursday. She denies any itching of her skin. She had a stroke in 1999 and was found to have a PFO, was on Warfarin initially and then transitioned to Xarelto. Last dose of Xarelto was on 12/23 at 6PM. She had a intra-abdominal hematoma. Recent admission to [facility]: 11/11-11/17 and discharged on Levaquin/flagyl for ascending cholangitis miiCard vaccine #2 2 weeks ago (she had a reaction of shaking X1 day with this) Social: denies ETOH, tobacoo, substance use Allergies Allergy/AdvReac Type Severity Reaction Status Date / Time Iodinated Contrast Media Allergy Severe Shortness Verified 12/23/20 21:30 of Breath bee venom protein (honey bee) Allergy Intermediate DYSPNEA/SWE Verified 12/23/20 21:30 LLING Penicillins Allergy Intermediate DYSPNEA/RENEA Verified 12/23/20 21:30 PHORESIS tramadol Allergy Unknown Nauseated Verified 12/23/20 21:30 codeine AdvReac Intermediate NAUSEA/VOMITING Verified 12/23/20 21:30 (TOLERATES VICODIN) oxycodone AdvReac Intermediate NAUSEA/VOMITING Verified 12/23/20 21:30 (TOLERATES VICODIN) sulfite AdvReac Intermediate GI sxs Verified 12/23/20 21:30 Home Medications Medication Instructions Recorded Confirmed Type ascorbic acid (vitamin C) 500 mg PO DAILY #0 01/31/10 12/23/20 History ferrous sulfate 325 mg PO TIDM #0 03/21/15 12/23/20 History cholecalciferol (vitamin D3) 125 5,000 units PO DAILY 09/15/18 12/23/20 History mcg (5,000 unit) capsule riboflavin (vitamin B2) 50 mg 50 mg PO QAM 09/08/19 12/23/20 History tablet epinephrine 0.3 mg/0.3 mL 0.3 mg IM Q4H PRN #1 ea 09/03/20 12/23/20 Rx injection, auto-injector hydromorphone 2 mg PO Q4 PRN 11/11/20 12/23/20 History ondansetron 4 mg PO Q4 PRN 11/11/20 12/23/20 History atorvastatin 40 mg tablet 20 mg PO HS tab 12/12/20 12/23/20 History calcium carbonate 500 mg (1,250 2 tab PO BID 12/12/20 12/23/20 History mg)-vitamin D3 200 unit tablet cyanocobalamin (vitamin B-12) 1,000 mcg PO 5XWK #0 tab 12/12/20 12/23/20 History 1,000 mcg tablet magnesium oxide 400 mg (241.3 mg 400 mg PO TID #0 tab 12/12/20 12/23/20 History magnesium) tablet multivitamin with minerals 1 tab PO BID tab 12/12/20 12/23/20 History potassium chloride 20 mEq 20 meq PO BID tab 12/12/20 12/23/20 History tablet,extended release(part/cryst) esomeprazole magnesium 40 mg PO QAM 12/23/20 12/23/20 History rivaroxaban 10 mg PO QPM 12/23/20 12/23/20 History Past Med/Surg History Medical History Basal cell carcinoma of skin Cerebral infarction Cervical radiculopathy Hepatitis C virus Nummular eczema Surgical History H/O abdominal surgery History of oral surgery tooth extraction S/P appendectomy S/P shoulder surgery Family History Father Myocardial infarction Gastric cancer Mother Atrial fibrillation Congestive heart failure Other Cancer Diabetes Denies family history of Ovarian cancer Prostate cancer Breast cancer Colorectal cancer Social History Smoking Status: Never smoker Second Hand Exposure: No; Do You Dip or Chew Tobacco: No; Hx Alcohol Use: No Hx Substance Use: No Preferred Language: Sami Communication Ability: Effective Visual Impairment: No Limitations Hearing Ability: Normal 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 Required: No Beliefs That Will Affect Care: None marital status: Current Living Situation: Spouse current occupational status: retired Other Information That Helps Us Care for You: No Feels Safe at Home: Yes Safety Concerns: Feels Safe At This Time Childhood Exposure to Second-Hand Smoke: Yes Dental Care, Regularly: Yes Physical Activity Frequency: Daily Seatbelt Use: always Sunscreen Use: Yes Assistive Devices: None Review of Systems Review of Systems: Constitutional: denies fevers, nausea, vomiting, diaphoresis admits chills, fatigue, weight loss Head: denies trauma, lightheadedness, changes in vision Neurologic: denies syncope, slurring of speech admits chronic focal weakness ENT: denies stuffiness admits rhinorrhea Cardiac: denies chest pain, palpitations GI: denies diarrhea constipation w/ nl. ostomy output color consistency : denies frequency, urgency, pain Physical Exam Constitutional: + cachectic; not in distress Eyes: - sclera icteric ENMT: external ear and nose normal, oropharynx normal - scar above left lip Neck: normal visual inspection Respiratory: normal respiratory effort, lungs clear to auscultation Cardiovascular: RRR, no murmur, no edema Gastrointestinal (Abdomen): - ostomy inplace with no concern for swelling - left lower quadrant tenderness, mild - not rigid Skin: - yellowing of skin Neurologic: Speech / Cognition: normal speech Psychiatric: Orientation: alert Eye Contact: good eye contact Speech: normal rate/rhythm/volume of speech Affect: + depressed affect Results & Data Results & Data ([facility]) Vital Signs (Past 12 Hours) Vital Signs Temp Pulse Resp BP Pulse Ox 12/24/20 00:22 92 H 29 H 97 12/24/20 00:00 123/70 12/23/20 23:45 133/64 12/23/20 23:42 132/61 12/23/20 23:41 128/62 12/23/20 23:40 112 H 34 H 12/23/20 23:31 94 H 21 96 12/23/20 23:30 92 H 22 101/68 96 12/23/20 23:20 87 25 H 95 12/23/20 23:15 88 29 H 120/60 96 12/23/20 23:10 90 29 H 95 12/23/20 23:01 96 H 30 H 12/23/20 23:00 108 H 27 H 151/68 H 12/23/20 22:50 93 H 30 H 12/23/20 22:45 100 H 30 H 121/61 88 L 12/23/20 22:40 94 H 31 H 91 12/23/20 22:31 27 H 94 12/23/20 22:30 93 H 34 H 132/65 95 12/23/20 22:20 97 H 31 H 96 12/23/20 22:10 95 H 37 H 95 12/23/20 22:00 100 H 36 H 95 12/23/20 21:50 101 H 35 H 95 12/23/20 21:40 107 H 30 H 95 12/23/20 21:30 16 12/23/20 21:20 108 H 33 H 98 12/23/20 21:10 145 H 35 H 94 12/23/20 21:00 113 H 39 H 97 12/23/20 20:50 117 H 30 H 80 L 12/23/20 20:41 124 H 35 H 12/23/20 20:36 123 H 46 H 130/61 12/23/20 20:23 39.5 C H 127 H 22 130/61 96 CBC Results Results Complete Blood Count Results: RBC 2.66 M/uL (4.2-5.4) L 12/23/20 WBC 16.78 K/uL (4.8-10.8) H 12/23/20 Hgb 7.8 g/dL (12.0-16.0) L 12/23/20 Hct 24.0 % (37-47) L 12/23/20 Plt Count 599 K/uL (130-400) H 12/23/20 Chemistry (BMP) Results BMP Results: Sodium 135 mmol/L (136-145) L 12/23/20 Potassium 4.7 mmol/L (3.5-5.1) 12/23/20 Chloride 105 mmol/L (98-107) 12/23/20 BUN 45 mg/dl (7-18) H 12/23/20 Creatinine 2.10 mg/dl (0.6-1.2) H 12/23/20 Glucose 281 mg/dl (70-99) H 12/23/20 Code Status & VTE Plan VTE Prophylaxis Plan VTE Prophylaxis will be ordered: Yes Supervising Physician Co-Signing Physician Notes Attending addendum: I have physically seen this patient, have supervised the medical residents activities, and agree with the H&P unless as otherwise noted. Assessment and Plan: Gallbladder cancer/status post biliary stent placement- Patient is febrile and WBC is elevated, raising concern regarding possible stent malfunction Recommendation from GI consult Dr. Castellanos over the phone, the patient would probably be best served returning to [facility]. However, patient did not want to go to [place], and felt that IV fluids will take care of the problem as it has in the past. Cefepime and Flagyl IV IV fluids Recheck laboratories in a.m. Anemia- Hemoglobin 7.8 upon admission, with baseline around 10 Hemoccult stools Last Xarelto dose was at 6:00 this evening,, and would hold further until assessment is performed Type and screen Serial H&H's CT abdomen pelvis negative for retroperitoneal or other intra-abdominal bleed differential includes intravascular hemolysis since on Xarelto Vital signs are stable. Remaining orders and notations as noted Resident Activity Tracking Resident Involvement: Resident Care Provided Care Provided: Adult Hospital Medicine
[2020-12-24] MEDS ORDERED: POLYETHYLENE (MIRALAX) 17 GM PACK PO PRN (00:58)
[2020-12-24] MEDS ORDERED: HYDROmorphone HCL 2 MG TAB PO PRN (00:58)
[2020-12-24] MEDS ORDERED: ONDANSETRON 4 MG OD TAB PO PRN (01:28)
[2020-12-24] MEDS ORDERED: CEFEPIME CONSULT ACTIVE PRN (01:33)
[2020-12-24] MEDS: SODIUM CHLORIDE 0.9% 1000ML 1,000 ML IV SCH ×3 (02:22→22:09)
--- NOTE | 2020-12-24 05:05 | Billing Data ---
Date of Service December 24, 2020 Coding Level of Care Code 22857 Initial Inpt Care Lvl 3
[2020-12-24 05:22] LABS: Hematocrit (blood only) 21.5 % (37-47); Mean Corpuscular Hgb Conc 32.6 g/dL (32-36); Mean Corpuscular Volume 89.2 fL (80-100); Mean Platelet Volume 10.3 fL (7.4-10.4); Platelet Count 473 K/uL (130-400); RDW Coefficient of Variation 18.6 % (11.5-14.5); RDW Standard Deviation 59.2 fL (36.4-46.3); Red Blood Count 2.41 M/uL (4.2-5.4)
[2020-12-24 05:30] LABS: Albumin Level 1.6 gm/dl (3.4-5.0); BUN Creatinine Ratio 26.4 (10-20); Creatinine Clr Calc Pharmacy 29.7 ml/min; Est GFR (African American) 32.9; Est GFR (Non-African American) 28.4; Potassium 4.2 mmol/L (3.5-5.1)
[2020-12-24 05:31] LABS: Albumin Globulin Ratio 0.3 (0.9-2); Bilirubin,Total 5.5 mg/dl (0.2-1); Globulin 5.1 gm/dl (2.5-4.0); Total Protein 6.7 gm/dl (6.4-8.2)
[2020-12-24 05:32] LABS: Basophils # (auto) 0.02 K/uL (0-0.2); Basophils % (auto) 0.1 %; Dohle Bodies 1+; Immature Granulocytes # (auto) 0.37 K/uL (0.00-0.02); Immature Granulocytes % (auto) 2.5 %; Lymphocytes # (auto) 1.56 K/uL (1.2-3.4); Lymphocytes % (auto) 10.3 %; Monocytes # (auto) 1.71 K/uL (0.11-0.59); Monocytes % (auto) 11.3 %; Neutrophils # (auto) 11.44 K/uL (1.4-6.5); Neutrophils % (auto) 75.8 %
[2020-12-24 05:34] LABS: Appearance Urine Turbid (Clear); Bacteria Urine Automated Negative (Negative); Blood Urine 2+ (Negative); Color Urine Dark Yellow; Epithelial Cell Urine Auto >30 /lpf (0-5); Glucose Urine UA Negative (Negative); Ketones Urine Negative (Negative); Leukocyte Esterase Urine 1+ (Negative); Nitrite Urine Negative (Negative); Protein Urine 1+ (Negative); Specific Gravity Urine 1.014 (1.000-1.030); Urobilinogen Urine Negative (Negative)
[2020-12-24] MEDS ORDERED: metroNIDAZOLE 500 MG/100 ML BAG IV SCH (06:00)
[2020-12-24 06:01] LABS: Bilirubin Urine 1+ (Negative)
[2020-12-24 06:31] LABS: Cast Urine Automated 0 /lpf (0-5)
[2020-12-24 06:32] LABS: Amorphous Sediment Urine Present (None Prsent)
--- NOTE | 2020-12-24 07:29 | XRay Report ---
SINGLE VIEW CHEST CLINICAL HISTORY: Generalized weakness. FINDINGS: An AP, portable, semierect chest radiograph is compared to study dated 11/11/2020. The cardio mediastinal silhouette is unremarkable. There is chronic elevation of the right hemidiaphragm and bib asilar atelectasis. No airspace consolidation or large pleural effusion is identified. There is no pn eumothorax. The skeletal structures are osteopenic. The bony thorax is grossly intact. IMPRESSION: No active disease in the chest. ACT 112: Negative or not required by law. Electronically signed by: Bright Gray M.D. 12/24/2020 7:27 AM
[2020-12-24] MEDS ORDERED: MEROPENEM CONSULT ACITVE PRN (08:49)
[2020-12-24] MEDS: PANTOprazole 40 MG TAB PO SCH (08:58)
[2020-12-24] MEDS ORDERED: levoFLOXacin/D5W 750 MG/150 ML BAG IV SCH (09:00)
[2020-12-24] MEDS ORDERED: CEFEPIME 2,000 MG in SYRINGE 0 ML IV SCH (09:00)
[2020-12-24] MEDS: ACETAMINOPHEN 325 MG TAB PO PRN ×3 (09:08→21:05)
--- NOTE | 2020-12-24 09:28 | CT Scan Report ---
CT chest diagnostic wo con CT DOSE: HISTORY: sepsis TECHNIQUE: Multiaxial CT images of the chest were performed without contrast. A dose lowering techni que was utilized adhering to the principles of ALARA. COMPARISON: None. FINDINGS: Please refer the same day abdomen and pelvis CT for further evaluation of the hepatic abnor malities. There is mild elevation of the right hemidiaphragm likely due to the enlarged liver. There is a 2.3 cm right thyroid nodule. No additional follow-up required given the patient's comorbidities. No mediastinal or hilar lymphadenopathy. The heart is normal in size. No pleural or pericardial effu sions. Normal esophagus. Normal caliber thoracic aorta. An 8 mm sclerotic focus within the left gleno id. This is indeterminate but favors a bone island. Otherwise, no suspicious lytic are blastic osseou s lesions. Bibasilar linear densities consistent with subsegmental atelectasis. No pneumothorax. The central airways are patent. IMPRESSION: 1. Mild elevation of the right hemidiaphragm likely due to the enlarged liver. 2. Please refer to the same day abdomen and pelvis CT for further evaluation of the hepatic abnormali ties. 3. Bibasilar linear densities favor subsegmental atelectasis. ACT 112: Negative or not required by law. Electronically signed by: Noel Jones M.D. 12/24/2020 9:27 AM
--- NOTE | 2020-12-24 09:47 | CT Scan Report ---
CT SCAN OF THE ABDOMEN AND PELVIS WITHOUT IV CONTRAST CLINICAL HISTORY: Acute renal insufficiency. Metastatic gallbladder carcinoma. COMPARISON STUDY: Abdominal CT dated 12/03/2020 11/11/2020. TECHNIQUE: CT scan of the abdomen and pelvis is performed from the lung bases to the proximal femora. Images are reviewed in the axial, sagittal, and coronal planes. IV contrast was not administered for this examination due to a reported history of contrast allergy and portal function. Note that the ex amination is significantly suboptimal without IV contrast. A dose lowering technique was utilized adh ering to the principles of ALARA. The examination is degraded by motion artifact. CT DOSE: 686.63 mGy.cm FINDINGS: Lung bases: The heart is normal in size noting trace pericardial fluid. There are scattered coronary artery calcifications. There is diminished attenuation of the cardiac blood pool as compared to the m yocardium suggesting anemia. The lung bases are clear noting bibasilar scarring/atelectasis. There is a small hiatal hernia. Liver: The unenhanced liver is normal in size, contour, and attenuation. A common bile duct stent is unchanged in position. This extends from the right lobe intrahepatic ducts to the duodenum. There is mild biliary ductal dilatation seen in the right lobe. Moderate to severe biliary ductal dilatation i s noted in the left lobe, and this is similar to previous. There is a 4.9 x 2.9 cm loculated lesion/c ollection identified within the subcapsular right lobe below diaphragm seen on image #73. This is new from the 12/03/2020 examination. Additional low-attenuation foci measuring up to 2 cm are seen on tristen ges #52, #89, #109, and #114. These are also new from previous. Gallbladder: The gallbladder is surgically absent. Spleen: Normal in size and attenuation. Pancreas: The unenhanced pancreas is atrophic and grossly unremarkable. Adrenal glands: Unremarkable. Kidneys: The unenhanced kidneys are atrophic and without hydronephrosis. There are no renal calculi i dentified. There is no evidence of contour deforming renal mass lesion. 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 Abdominal vasculature: The abdominal aorta is normal in course and caliber noting mild atheroscleroti c calcification. Bowel: There is postoperative change from colectomy with right lower quadrant ostomy. A parastomal he rnia is noted. No bowel obstruction is seen. The appendix is not identified and reported surgically absent. Peritoneum: There is no intraperitoneal free air or abdominal ascites. Postoperative change is noted in the ventral abdominal wall. Lymphadenopathy: Prominent upper abdominal lymph nodes/implants have modestly increased in size from previous. A lesion on image #226 measures 1.8 x 1.3 cm Pelvic viscera: There is an approximately 11 x 12 x 8 cm complex hyperdense fluid collection identifi ed in the left pelvis. This has modestly decreased in size as compared to 11/11/2020. This causes mass effect on the adjacent bladder which is partially decompressed. No gas is identified within this david ection. The uterus and adnexa are grossly unremarkable. Skeletal structures: The skeletal structures are osteopenic. There is mild lumbosacral spondylosis. N o lytic or blastic lesions are seen. IMPRESSION: 1. There is a 4.9 x 2.9 cm multiloculated appearing low-attenuation lesion identified in the superior right lobe of liver below the diaphragm. This is new from 12/03/2020, and although this could potenti ally represent metastatic disease the time course and appearance is more concerning for abscess. Clin ical correlation will be essential. 2. There are additional low-attenuation foci throughout the liver which are also new from previous. D ifferential considerations are the same. 3. A common bile duct stent is unchanged in position, and intrahepatic biliary ductal dilatation is s imilar to previous. 4. Upper abdominal lymph nodes/implants have modestly increased in size from previous. 5. A large complex hyperdense fluid collection in the left pelvis has modestly decreased in size from 11/11/2020. The density remains most typical for a hematoma. 6. Again seen are postoperative changes from colectomy with right lower quadrant ostomy. 7. A parastomal hernia is unchanged. No bowel obstruction is identified. 8. Additional findings as above. ACT 112: Negative or not required by law. Electronically signed by: Bright Gray M.D. 12/24/2020 9:46 AM
[2020-12-24] MEDS: MEROPENEM 500 MG in SYRINGE 0 ML IV SCH ×2 (10:13→17:03)
[2020-12-24] MEDS: FERROUS SULFATE 325 MG TAB PO SCH ×3 (10:14→17:03)
[2020-12-24] MEDS: POTASSIUM CHLORIDE CRTAB 20 MEQ TABCR PO SCH ×2 (10:14→21:05)
[2020-12-24] MEDS: MAGNESIUM OXIDE 400 MG TAB PO SCH ×3 (10:14→21:03)
[2020-12-24 11:23] LABS: Hemoglobin 7.5 g/dL (12.0-16.0)
--- NOTE | 2020-12-24 12:35 | Hospitalist Progress Note ---
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 infection. Sepsis 2/2 New Liver Abscess - Pending transfer to [facility] for interventional radiology care - CT A/P showing new 4.9 x 2.9 cm abscess of right lobe of liver that is most likely etiology for hyperbilirubinemia - Received 1 dose of cefepime in ER, converted to meropenem and flagyl today. - Blood cultures growing gram negative bacilli at 24 hours - Previously has grown pseudomonas in cultures sensitive to levaquin, cipro, meropenem. - indeterminate to cefepime, weakly sensitive (<16) to zosyn - GI input: abscess will require IR drainage for optimal treatment, will need to transfer to tertiary facility to follow through with this - urine culture pending. UA dirty sample, 1+LE with sediment, WBC, RBC - WBC elevated to 15, febrile to 39.5C yesterday, 38.7 this AM, visibly rigor- ous - Tbili up to 5.5, Alk phos 722, AST 94, ALT 72 Anemia in setting of Crohn's disease - baseline hemoglobin 10, down to 7.8 on admission, 7.0 this AM - repeat H&H show stabilization at 7.5 - 8 - will continue xarelto for stroke prevention with stable anemia - FOBT positive from ostomy - continue iron supplement - discussed possible future requirement for transfusion and consent placed in chart - pelvic hematoma decreased in size on CT a/p from previous AGUILAR - secondary to acute dehydration and decreased PO intake/sepsis - fluid resuscitated with 2 L in ER - continuing NS @ 125 ml/hr - renally dosing all medications - Cr dwon to 1.74 with gfr 28.4 HLD - continue atorvastatin 20 mg daily Pain - home regimen of tylenol and dilaudid 2mg po Q4h continued, has not required narcotic support recently - zofran for nausea DVT ppx: on xarelto FEN/GI: Full Liquids, peach boost at every meal Dispo: transfer to [facility] pending Code Status: Full Code (2) AGUILAR (acute kidney injury): (3) Acute dehydration: (4) Cholestatic jaundice: (5) PFO (patent foramen ovale): (6) Crohn's disease: Admission and Anticipated Discharge Date Admission Date: December 24, 2020 Supervising Physician Co-Signing Physician Notes Attending attestation Pt seen and examined in concert with Dr. Lynn. In agreement with the documented findings as noted in the resident documentation with any exceptions or additions as noted here. Feeling overall better now that fevers and rigors have broken, but still overall weak. On examination, S1/S2 nl RRR no MCG. CTAB. Abd TTP worse RUQ Sepsis w/ liver abscess in the setting of GB cancer s/p biliary stent placement - GI consultation - transitioned to IV meropenem out of concern for resistance, tolerability. Based on GI recommendations and imaging, agree w/ transfer to [facility] for tertiary management Anemia, chronic - decreased from baseline but stable today at 7.5. Transfusion threshold at 7 or w/ sx. Trend q12h. AGUILAR - improved w/ hydration, monitor Else see resident documentation as noted. Subjective 75 yo F admitted overnight with recent hx Gallbladder cancer, found to be severely dehydrated with concern for infection. This morning feeling shaky, cold. Denies any urinary frequency, burning. mild abdominal pain in location of resolving hematoma, no exacerbations of pain. somewhat nauseous, hasn't been able to eat or drink well for the past week. significant weakness and lethargy compared to baseline. Review of Systems Constitutional: as per Subjective / HPI Physical Exam Physical Exam: Constitutional: thin, cachectic, in rigors, laying in bed. Eyes: EOMI, pupils equal and reactive bilaterally,+ BL scleral icterus Cardiac: Tachycardic, RR, no murmurs, gallops or rubs. Normal S1, S2 Pulm: CTA BL, no wheezes, rhonchi, crackles or rubs, moving air well throughout both lungs, no extra work of breathing Abd: soft, mildly tender at suprapubic region, nondistended, normal bowel sounds, no rebound or guarding. Ostomy draining black diarrhea. Extremities: 1+ peripheral pulses, no edema SKin: jaundiced Neuro: no focal deficits, moving all 4 limbs, A&Ox3 Results & Data Results & Data ([facility]) Vital Signs (Past 12 Hours) Vital Signs Temp Pulse Pulse Resp BP BP Pulse Ox 12/24/20 11:25 37.7 C H 96 H 96 H 22 127/81 94 12/24/20 09:48 38.7 C H 12/24/20 09:00 37.9 C H 12/24/20 08:00 36.8 C 74 82 20 124/72 99 12/24/20 03:30 36.3 C L 77 21 118/70 99 12/24/20 01:00 74 17 12/24/20 00:58 36.6 C 90 18 143/84 H 98 12/24/20 00:44 90 23 143/84 H 98 12/24/20 00:43 93 H 28 H 98 Pulse Ox 12/24/20 11:25 12/24/20 09:48 12/24/20 09:00 12/24/20 08:00 12/24/20 03:30 12/24/20 01:00 12/24/20 00:58 98 12/24/20 00:44 12/24/20 00:43 Laboratory Results WBC 15.10 K/uL (4.8-10.8) H 12/24/20 04:57 RBC 2.41 M/uL (4.2-5.4) L 12/24/20 04:57 Hgb 8.0 g/dL (12.0-16.0) L 12/24/20 15:40 Hct 23.9 % (37-47) L 12/24/20 15:40 MCV 89.2 fL (80-100) 12/24/20 04:57 MCH 29.0 pg (25-34) 12/24/20 04:57 MCHC 32.6 g/dL (32-36) 12/24/20 04:57 RDW Std Deviation 59.2 fL (36.4-46.3) H 12/24/20 04:57 RDW Coeff of Shai 18.6 % (11.5-14.5) H 12/24/20 04:57 Plt Count 473 K/uL (130-400) H 12/24/20 04:57 MPV 10.3 fL (7.4-10.4) 12/24/20 04:57 Immature Gran % (Auto) 2.5 % 12/24/20 04:57 Neut % (Auto) 75.8 % 12/24/20 04:57 Lymph % (Auto) 10.3 % 12/24/20 04:57 Snyder % (Auto) 11.3 % 12/24/20 04:57 Eos % (Auto) 0.0 % 12/24/20 04:57 Baso % (Auto) 0.1 % 12/24/20 04:57 Neut # (Auto) 11.44 K/uL (1.4-6.5) H 12/24/20 04:57 Lymph # (Auto) 1.56 K/uL (1.2-3.4) 12/24/20 04:57 Snyder # (Auto) 1.71 K/uL (0.11-0.59) H 12/24/20 04:57 Eos # (Auto) 0.00 K/uL (0-0.5) 12/24/20 04:57 Baso # (Auto) 0.02 K/uL (0-0.2) 12/24/20 04:57 Immature Gran # (Auto) 0.37 K/uL (0.00-0.02) H 12/24/20 04:57 Absolute Nucleated RBC 0.04 K/uL (0-0) H 12/23/20 20:50 Nucleated RBC % (auto) 0.2 % 12/23/20 20:50 Dohle Bodies 1+ 12/24/20 04:57 Polychromasia 1+ 12/23/20 20:50 Sodium 141 mmol/L (136-145) 12/24/20 04:57 Potassium 4.2 mmol/L (3.5-5.1) 12/24/20 04:57 Chloride 114 mmol/L (98-107) H 12/24/20 04:57 Carbon Dioxide 20 mmol/L (21-32) L 12/24/20 04:57 Anion Gap 7.0 (3-11) 12/24/20 04:57 BUN 46 mg/dl (7-18) H 12/24/20 04:57 Creatinine 1.74 mg/dl (0.6-1.2) H D 12/24/20 04:57 Est Cr Clr Drug Dosing 29.7 ml/min 12/24/20 04:57 Est GFR ( Amer) 32.9 12/24/20 04:57 Est GFR (Non-Af Amer) 28.4 12/24/20 04:57 BUN/Creatinine Ratio 26.4 (10-20) H 12/24/20 04:57 Glucose 151 mg/dl (70-99) H 12/24/20 04:57 Lactate 2.2 mmol/L (0.4-2.0) H* 12/23/20 23:47 Calcium 9.0 mg/dl (8.5-10.1) 12/24/20 04:57 Total Bilirubin 5.5 mg/dl (0.2-1) H 12/24/20 04:57 AST 94 U/L (15-37) H 12/24/20 04:57 ALT 72 U/L (12-78) 12/24/20 04:57 Alkaline Phosphatase 722 U/L (45-117) H 12/24/20 04:57 Troponin I < 0.015 ng/ml (0-0.045) 12/23/20 20:50 Total Protein 6.7 gm/dl (6.4-8.2) 12/24/20 04:57 Albumin 1.6 gm/dl (3.4-5.0) L 12/24/20 04:57 Globulin 5.1 gm/dl (2.5-4.0) H 12/24/20 04:57 Albumin/Globulin Ratio 0.3 (0.9-2) L 12/24/20 04:57 Urine Color Dark Yellow 12/24/20 05:00 Urine Appearance Turbid (Clear) A 12/24/20 05:00 Urine pH 5.0 (4.5-7.5) 12/24/20 05:00 Ur Specific [place] 1.014 (1.000-1.030) 12/24/20 05:00 Urine Protein 1+ (Negative) H 12/24/20 05:00 Urine Glucose (UA) Negative (Negative) 12/24/20 05:00 Urine Ketones Negative (Negative) 12/24/20 05:00 Urine Blood 2+ (Negative) H 12/24/20 05:00 Urine Nitrite Negative (Negative) 12/24/20 05:00 Urine Bilirubin 1+ (Negative) H 12/24/20 05:00 Urine Urobilinogen Negative (Negative) 12/24/20 05:00 Ur Leukocyte Esterase 1+ (Negative) H 12/24/20 05:00 Urine WBC (Auto) 5-10 /hpf (0-5) H 12/24/20 05:00 Urine RBC (Auto) 5-10 /hpf (0-4) H 12/24/20 05:00 U Hyaline Cast (Auto) 0 /lpf (0-5) 12/24/20 05:00 U Epithel Cells (Auto) >30 /lpf (0-5) H 12/24/20 05:00 Urine Bacteria (Auto) Negative (Negative) 12/24/20 05:00 Ur Renal Epithelial Cell Not Reportable 12/24/20 05:00 Amorphous Sediment Present (None Prsent) A 12/24/20 05:00 Urine Yeast Not Reportable 12/24/20 05:00 Stool Occult Bld Scrn Positive (Negative) A 12/24/20 10:06 COVID-19 Eval Order CovFluRsv at [facility] 12/23/20 21:40 SARS-CoV-2 (PCR) NEGATIVE (Negative) 12/23/20 21:40 Influenza Type A (PCR) Negative (Neg) 12/23/20 21:40 Influenza Type B (PCR) Negative (Neg) 12/23/20 21:40 RSV (RT-PCR) Negative (Neg) 12/23/20 21:40 Blood Type A Positive 12/24/20 04:57 Antibody Screen NEGATIVE 12/24/20 04:57 Impressions Chest X-Ray 12/23/20 21:10 SINGLE VIEW CHEST CLINICAL HISTORY: Generalized weakness. FINDINGS: An AP, portable, semierect chest radiograph is compared to study dated 11/11/2020. The cardiomediastinal silhouette is unremarkable. There is chronic elevation of the right hemidiaphragm and bibasilar atelectasis. No airspace consolidation or large pleural effusion is identified. There is no pneumothorax. The skeletal structures are osteopenic. The bony thorax is grossly intact. IMPRESSION: No active disease in the chest. ACT 112: Negative or not required by law. Electronically signed by: Bright Gray M.D. 12/24/2020 7:27 AM Abdomen/Pelvis CT 12/23/20 23:09 CT SCAN OF THE ABDOMEN AND PELVIS WITHOUT IV CONTRAST CLINICAL HISTORY: Acute renal insufficiency. Metastatic gallbladder carcinoma. COMPARISON STUDY: Abdominal CT dated 12/03/2020 11/11/2020. TECHNIQUE: CT scan of the abdomen and pelvis is performed from the lung bases to the proximal femora. Images are reviewed in the axial, sagittal, and coronal planes. IV contrast was not administered for this examination due to a reported history of contrast allergy and portal function. Note that the examination is significantly suboptimal without IV contrast. A dose lowering technique was utilized adhering to the principles of ALARA. The examination is degraded by motion artifact. CT DOSE: 686.63 mGy.cm FINDINGS: Lung bases: The heart is normal in size noting trace pericardial fluid. There are scattered coronary artery calcifications. There is diminished attenuation of the cardiac blood pool as compared to the myocardium suggesting anemia. The lung bases are clear noting bibasilar scarring/atelectasis. There is a small hiatal hernia. Liver: The unenhanced liver is normal in size, contour, and attenuation. A common bile duct stent is unchanged in position. This extends from the right lobe intrahepatic ducts to the duodenum. There is mild biliary ductal dilatation seen in the right lobe. Moderate to severe biliary ductal dilatation is noted in the left lobe, and this is similar to previous. There is a 4.9 x 2.9 cm loculated lesion/collection identified within the subcapsular right lobe below diaphragm seen on image #73. This is new from the 12/03/2020 examination. Additional low-attenuation foci measuring up to 2 cm are seen on images #52, #89, #109, and #114. These are also new from previous. Gallbladder: The gallbladder is surgically absent. Spleen: Normal in size and attenuation. Pancreas: The unenhanced pancreas is atrophic and grossly unremarkable. Adrenal glands: Unremarkable. Kidneys: The unenhanced kidneys are atrophic and without hydronephrosis. There are no renal calculi identified. There is no evidence of contour deforming renal mass lesion. 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 Abdominal vasculature: The abdominal aorta is normal in course and caliber noting mild atherosclerotic calcification. Bowel: There is postoperative change from colectomy with right lower quadrant ostomy. A parastomal hernia is noted. No bowel obstruction is seen. The appendix is not identified and reported surgically absent. Peritoneum: There is no intraperitoneal free air or abdominal ascites. Postoperative change is noted in the ventral abdominal wall. Lymphadenopathy: Prominent upper abdominal lymph nodes/implants have modestly increased in size from previous. A lesion on image #226 measures 1.8 x 1.3 cm Pelvic viscera: There is an approximately 11 x 12 x 8 cm complex hyperdense fluid collection identified in the left pelvis. This has modestly decreased in size as compared to 11/11/2020. This causes mass effect on the adjacent bladder which is partially decompressed. No gas is identified within this collection. The uterus and adnexa are grossly unremarkable. Skeletal structures: The skeletal structures are osteopenic. There is mild lumbosacral spondylosis. No lytic or blastic lesions are seen. IMPRESSION: 1. There is a 4.9 x 2.9 cm multiloculated appearing low-attenuation lesion identified in the superior right lobe of liver below the diaphragm. This is new from 12/03/2020, and although this could potentially represent metastatic disease the time course and appearance is more concerning for abscess. Clinical correlation will be essential. 2. There are additional low-attenuation foci throughout the liver which are also new from previous. Differential considerations are the same. 3. A common bile duct stent is unchanged in position, and intrahepatic biliary ductal dilatation is similar to previous. 4. Upper abdominal lymph nodes/implants have modestly increased in size from previous. 5. A large complex hyperdense fluid collection in the left pelvis has modestly decreased in size from 11/11/2020. The density remains most typical for a hematoma. 6. Again seen are postoperative changes from colectomy with right lower quadrant ostomy. 7. A parastomal hernia is unchanged. No bowel obstruction is identified. 8. Additional findings as above. ACT 112: Negative or not required by law. Electronically signed by: Bright Gray M.D. 12/24/2020 9:[address] 12/23/20 23:43 CT chest diagnostic wo con CT DOSE: HISTORY: sepsis TECHNIQUE: Multiaxial CT images of the chest were performed without contrast. A dose lowering technique was utilized adhering to the principles of ALARA. COMPARISON: None. FINDINGS: Please refer the same day abdomen and pelvis CT for further evaluation of the hepatic abnormalities. There is mild elevation of the right hemidiaphragm likely due to the enlarged liver. There is a 2.3 cm right thyroid nodule. No additional follow-up required given the patient's comorbidities. No mediastinal or hilar lymphadenopathy. The heart is normal in size. No pleural or pericardial effusions. Normal esophagus. Normal caliber thoracic aorta. An 8 mm sclerotic focus within the left glenoid. This is indeterminate but favors a bone island. Otherwise, no suspicious lytic are blastic osseous lesions. Bibasilar linear densities consistent with subsegmental atelectasis. No pneumothorax. The central airways are patent. IMPRESSION: 1. Mild elevation of the right hemidiaphragm likely due to the enlarged liver. 2. Please refer to the same day abdomen and pelvis CT for further evaluation of the hepatic abnormalities. 3. Bibasilar linear densities favor subsegmental atelectasis. ACT 112: Negative or not required by law. Electronically signed by: Noel Jones M.D. 12/24/2020 9:27 AM Resident Activity Tracking Resident Involvement: Resident Care Provided Care Provided: Adult [facility] Medicine
--- NOTE | 2020-12-24 13:44 | Gastrointestinal Consultation ---
Date of Consultation December 24, 2020 Assessment & Plan (1) Jaundice: can be from ascending cholangitis, improved today but can be life threatening without a drainage proceduere--Dr Garcia out of town and I do not do ERCP nor is there interventional rardiiology option for percutaneous draingage. Continue abx but discussed with patient and resident DR Lynn recommend transfer to [facility]. liver abscess--again continue abx but will need drainage by IR so recommend transfer to [facility] heme pos stool--no gross bleeding and drainage from bile duct cancer can cause heme pos stool sepsis---UA ok and no pneumonia on chest CT so most likely biliary source so transfer recommended as above. biliary cancer--nothing acute to do History of Present Illness Reason for Consultation: elevated total bilirubin Attending Physician: Keo Medina MD History of Present Illness cc weakness HPI Reviewed recent data in this EMR and [facility] EMR. 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 She is undergoing chemo locall y. Pt underwent 2 ERCPs at [facility] the first being uncessful to drain the bile duct. The second one 10/10/20 was only succssful at gettting a plastic stent into right system with left remaining undrained. She was hosptalized at [facility] ending 11/25/20 with jaundice and thought to have cholangitis but TB came back to baseline on abx so no intervention taken. Over the last week or so she has had anorexia and become very weak to the point she could not move. She was brought into the ER yesterday febrile, tachycarcic with elevated WBC, elevated lactate, and TB 6.5 vs 2.8 baseline. Her hgb is lower than baseline and heme pos stool but stool normal colored in ostomy currently and at home (she denies melena and red stool). CT a/p suggested biliary dilatation stable, resolving hematoma but new probable 5 cm liver abscess. Pt denies abd pain. Allergies Allergy/AdvReac Type Severity Reaction Status Date / Time Iodinated Contrast Media Allergy Severe Shortness Verified 12/23/20 21:30 of Breath bee venom protein (honey bee) Allergy Intermediate DYSPNEA/SWE Verified 12/23/20 21:30 LLING Penicillins Allergy Intermediate DYSPNEA/RENEA Verified 12/23/20 21:30 PHORESIS tramadol Allergy Unknown Nauseated Verified 12/23/20 21:30 codeine AdvReac Intermediate NAUSEA/VOMITING Verified 12/23/20 21:30 (TOLERATES VICODIN) oxycodone AdvReac Intermediate NAUSEA/VOMITING Verified 12/23/20 21:30 (TOLERATES VICODIN) sulfite AdvReac Intermediate GI sxs Verified 12/23/20 21:30 lactose AdvReac Verified 12/24/20 13:01 Home Medications Medication Instructions Recorded Confirmed Type ascorbic acid (vitamin C) 500 mg PO DAILY #0 01/31/10 12/23/20 History ferrous sulfate 325 mg PO TIDM #0 03/21/15 12/23/20 History cholecalciferol (vitamin D3) 125 5,000 units PO DAILY 09/15/18 12/23/20 History mcg (5,000 unit) capsule riboflavin (vitamin B2) 50 mg 50 mg PO QAM 09/08/19 12/23/20 History tablet epinephrine 0.3 mg/0.3 mL 0.3 mg IM Q4H PRN #1 ea 09/03/20 12/23/20 Rx injection, auto-injector hydromorphone 2 mg PO Q4 PRN 11/11/20 12/23/20 History ondansetron 4 mg PO Q4 PRN 11/11/20 12/23/20 History atorvastatin 40 mg tablet 20 mg PO HS tab 12/12/20 12/23/20 History calcium carbonate 500 mg (1,250 2 tab PO BID 12/12/20 12/23/20 History mg)-vitamin D3 200 unit tablet cyanocobalamin (vitamin B-12) 1,000 mcg PO 5XWK #0 tab 12/12/20 12/23/20 History 1,000 mcg tablet magnesium oxide 400 mg (241.3 mg 400 mg PO TID #0 tab 12/12/20 12/23/20 History magnesium) tablet multivitamin with minerals 1 tab PO BID tab 12/12/20 12/23/20 History potassium chloride 20 mEq 20 meq PO BID tab 12/12/20 12/23/20 History tablet,extended release(part/cryst) esomeprazole magnesium 40 mg PO QAM 12/23/20 12/23/20 History rivaroxaban 10 mg PO QPM 04/18/21 04/18/21 History Patient History Medical History Basal cell carcinoma of skin Cerebral infarction Cervical radiculopathy Hepatitis C virus Nummular eczema Surgical History H/O abdominal surgery History of oral surgery tooth extraction S/P appendectomy S/P shoulder surgery Family History Father Myocardial infarction Gastric cancer Mother Atrial fibrillation Congestive heart failure Other Cancer Diabetes Denies family history of Ovarian cancer Prostate cancer Breast cancer Colorectal cancer Social History Smoking Status: Never smoker Second Hand Exposure: No; Do You Dip or Chew Tobacco: No; Hx Alcohol Use: No Hx Substance Use: No Preferred Language: Italian Communication Ability: Effective Visual Impairment: No Limitations Hearing Ability: Normal Discharge Planner Required: No Beliefs That Will Affect Care: None marital status: Current Living Situation: Spouse current occupational status: retired Other Information That Helps Us Care for You: No Feels Safe at Home: Yes Safety Concerns: Feels Safe At This Time Childhood Exposure to Second-Hand Smoke: Yes Dental Care, Regularly: Yes Physical Activity Frequency: Daily Seatbelt Use: always Sunscreen Use: Yes Assistive Devices: None Review of Systems Review of Systems: All systems reviewed & are unremarkable except as noted in HPI & below Physical Exam Constitutional: WD/WN, vitals as above Neck: normal visual inspection and trachea midline Respiratory: normal respiratory effort, lungs clear to auscultation Cardiovascular: RRR, no murmur, no edema Gastrointestinal (Abdomen): pos bs,soft, no guarding nor rebound Skin: jaundice, decreased turgor Neurologic: PERRL, EOMI, accommodation nl, no face palsy, no dysarthria Psychiatric: A+Ox3, euthymic affect Results & Data ([facility]) Vital Signs (Past 12 Hours) Vital Signs Temp Pulse Pulse Resp BP Pulse Ox 12/24/20 11:25 37.7 C H 96 H 96 H 22 127/81 94 12/24/20 09:48 38.7 C H 12/24/20 09:00 37.9 C H 12/24/20 08:00 36.8 C 74 82 20 124/72 99 12/24/20 03:30 36.3 C L 77 21 118/70 99
[2020-12-24 15:50] LABS: Hematocrit (blood only) 23.9 % (37-47)
--- NOTE | 2020-12-24 17:33 | Electrocardiogram Report ---
Test Reason : Blood Pressure : / mmHG Vent. Rate : 120 BPM Atrial Rate : 120 BPM P-R Int : 144 ms QRS Dur : 070 ms QT Int : 310 ms P-R-T Axes : 052 019 039 degrees QTc Int : 438 ms Sinus tachycardia Otherwise normal ECG When compared with ECG of 11-NOV-2020 02:11, No significant change was found Confirmed by Fidel Lindo ([id number]) on 12/24/2020 5:32:22 PM Referred By: REFERRED SELF Confirmed By:Dwight Lindo
[2020-12-24] MEDS: ATORVASTATIN 20 MG TAB PO SCH (21:03)
[2020-12-24] MEDS: RIVAROXABAN 10 MG TABLET PO SCH (21:03)
[2020-12-24] MEDS ORDERED: CEFEPIME 1,000 MG in SYRINGE 0 ML IV SCH (22:00)
[2020-12-25] MEDS: MEROPENEM 500 MG in SYRINGE 0 ML IV SCH ×3 (02:11→17:23)
[2020-12-25] MEDS: SODIUM CHLORIDE 0.9% 1000ML 1,000 ML IV SCH (05:46)
[2020-12-25 06:10] LABS: Hematocrit (blood only) 21.2 % (37-47); Hemoglobin 6.9 g/dL (12.0-16.0); Mean Corpuscular Hgb Conc 32.5 g/dL (32-36); Mean Corpuscular Volume 89.1 fL (80-100); Mean Platelet Volume 11.4 fL (7.4-10.4); Platelet Count 622 K/uL (130-400); RDW Coefficient of Variation 18.9 % (11.5-14.5); RDW Standard Deviation 59.7 fL (36.4-46.3); Red Blood Count 2.38 M/uL (4.2-5.4); White Blood Count 22.76 K/uL (4.8-10.8)
[2020-12-25 06:12] LABS: Albumin Globulin Ratio 0.3 (0.9-2); Albumin Level 1.4 gm/dl (3.4-5.0); Basophils # (auto) 0.03 K/uL (0-0.2); Basophils % (auto) 0.1 %; Bilirubin,Total 5.7 mg/dl (0.2-1); Calcium 8.7 mg/dl (8.5-10.1); Creatinine Clr Calc Pharmacy 23.6 ml/min; Est GFR (African American) 28.5; Est GFR (Non-African American) 24.6; Globulin 5.2 gm/dl (2.5-4.0); Immature Granulocytes % (auto) 2.6 %; Lymphocytes # (auto) 0.64 K/uL (1.2-3.4); Lymphocytes % (auto) 2.8 %; Monocytes # (auto) 1.45 K/uL (0.11-0.59); Monocytes % (auto) 6.4 %; Neutrophils # (auto) 20.04 K/uL (1.4-6.5); Neutrophils % (auto) 88.1 %; Potassium 4.1 mmol/L (3.5-5.1); Total Protein 6.6 gm/dl (6.4-8.2); Toxic Vacuolation 1+
[2020-12-25] MEDS ORDERED: SODIUM CHLORIDE 0.9% 250 ML IV PRN ×2 (06:32→07:34)
[2020-12-25] MEDS: PANTOprazole 40 MG TAB PO SCH (07:54)
[2020-12-25] MEDS: FERROUS SULFATE 325 MG TAB PO SCH ×3 (07:54→17:23)
[2020-12-25] MEDS: MAGNESIUM OXIDE 400 MG TAB PO SCH ×3 (07:55→20:23)
[2020-12-25] MEDS: POTASSIUM CHLORIDE CRTAB 20 MEQ TABCR PO SCH ×2 (07:55→21:41)
--- NOTE | 2020-12-25 09:37 | Gastroenterology Progress Note ---
Date of Service December 25, 2020 Assessment & Plan (1) Jaundice: Patient white count has worsened from 15-22.76 today despite broad- spectrum antibiotics. Patient requires transfer to [facility] for further treatment including ERCP, interventional radiology with percutaneous drainage. I did speak to the resident Dr. Lynn this morning who reports she has contacted [facility]. Apparently [facility] does not have any beds however Dr. Lynn did notify [facility] that patient's condition has worsened and facility is looking for higher acuity bed placement. Consider tertiary care transfer to another facility if bed does not become available. Continue IV antibiotic. Patient condition is guarded. liver abscess--again continue abx but will need drainage by IR so recommend transfer to [facility] heme pos stool--no gross bleeding and drainage from bile duct cancer can cause heme pos stool sepsis---UA ok and no pneumonia on chest CT so most likely biliary source so transfer recommended as above. biliary cancer--nothing acute to do Case reviewed with Dr. Castellanos. Please refer to supervising physician addendum for further recommendations. Admission and Anticipated Discharge Date Admission Date: December 24, 2020 Supervising Physician Co-Signing Physician Notes I have seen and examined the patient. I agree with note above by JALEESA Jones except as noted below. HPI: Pt states she feels better. NO abd pain PE Abdomen pos bs, soft, no guarding nor rebound A/P sepsis --liver abscess and/or cholangitis. Worsening based on WBC Continue Abx and transfer to [facility]. Subjective The patient is awake alert and oriented this morning. She is sitting in the bed watching a program on her tablet. She denies any abdominal pain, nausea, vomiting. She reports that her ostomy bag was recently emptied. She is visibly jaundiced. Review of Systems Review of Systems: All systems reviewed & are unremarkable except as noted in HPI & below Physical Exam Constitutional: WD/WN, vitals as above Neck: normal visual inspection and trachea midline Respiratory: normal respiratory effort, lungs clear to auscultation Cardiovascular: RRR, no murmur, no edema Gastrointestinal (Abdomen): pos bs,soft, no guarding nor rebound, right-sided ostomy Skin: jaundice, decreased turgor Neurologic: PERRL, EOMI, accommodation nl, no face palsy, no dysarthria Psychiatric: A+Ox3, euthymic affect Results & Data ([facility]) Vital Signs (Past 12 Hours) Vital Signs Temp Pulse Resp BP Pulse Ox 12/25/20 09:05 36.8 C 98 H 20 126/62 96 12/25/20 08:35 36.8 C 96 H 20 131/69 96 12/25/20 08:05 37.2 C 99 H 20 144/68 H 96 12/25/20 07:35 36.8 C 92 H 20 140/70 97 12/25/20 07:20 37.2 C 92 H 20 133/64 97 12/25/20 07:00 36.8 C 92 H 20 127/62 97 12/25/20 03:41 37.1 C 12/25/20 03:39 93 H 23 114/58 L 90 12/25/20 00:24 37.7 C H 12/25/20 00:22 98 H 21 120/53 L 96 12/25/20 00:20 94 H 12/25/20 00:00 91 H 21 12/24/20 23:00 101 H 34 H Laboratory Results - last 24 hr 12/24/20 12/24/20 12/24/20 04:57 10:06 11:09 WBC RBC Hgb 7.5 L Hct 23.0 L MCV MCH MCHC RDW Std Deviation RDW Coeff of Shai Plt Count MPV Immature Gran % (Auto) Neut % (Auto) Lymph % (Auto) [place] % (Auto) Eos % (Auto) Baso % (Auto) Neut # (Auto) Lymph # (Auto) [place] # (Auto) Eos # (Auto) Baso # (Auto) Immature Gran # (Auto) Toxic Vacuolation Sodium Potassium Chloride Carbon Dioxide Anion Gap BUN Creatinine Est Cr Clr Drug Dosing Est GFR ( Amer) Est GFR (Non-Af Amer) BUN/Creatinine Ratio Glucose Calcium Magnesium Total Bilirubin AST ALT Alkaline Phosphatase Total Protein Albumin Globulin Albumin/Globulin Ratio Stool Occult Bld Scrn Positive A Blood Type A Positive Antibody Screen NEGATIVE Crossmatch See Detail 12/24/20 12/25/20 12/25/20 15:40 04:48 04:48 WBC 22.76 H RBC 2.38 L Hgb 8.0 L 6.9 L* Hct 23.9 L 21.2 L MCV 89.1 MCH 29.0 MCHC 32.5 RDW Std Deviation 59.7 H RDW Coeff of Shai 18.9 H Plt Count 622 H MPV 11.4 H Immature Gran % (Auto) 2.6 Neut % (Auto) 88.1 Lymph % (Auto) 2.8 [place] % (Auto) 6.4 Eos % (Auto) 0.0 Baso % (Auto) 0.1 Neut # (Auto) 20.04 H Lymph # (Auto) 0.64 L [place] # (Auto) 1.45 H Eos # (Auto) 0.00 Baso # (Auto) 0.03 Immature Gran # (Auto) 0.60 H Toxic Vacuolation 1+ Sodium 144 Potassium 4.1 Chloride 118 H Carbon Dioxide 18 L Anion Gap 8.0 BUN 43 H Creatinine 1.96 H Est Cr Clr Drug Dosing 23.6 Est GFR ( Amer) 28.5 Est GFR (Non-Af Amer) 24.6 BUN/Creatinine Ratio 22.0 H Glucose 82 Calcium 8.7 Magnesium 2.0 Total Bilirubin 5.7 H AST 110 H ALT 74 Alkaline Phosphatase 679 H Total Protein 6.6 Albumin 1.4 L Globulin 5.2 H Albumin/Globulin Ratio 0.3 L Stool Occult Bld Scrn Blood Type Antibody Screen Crossmatch
--- NOTE | 2020-12-25 11:07 | Hospitalist Progress Note ---
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 infection. Sepsis 2/2 New Liver Abscess - Pending transfer to tertiary center for interventional radiology care ([facility] - CT A/P showing new 4.9 x 2.9 cm abscess of right lobe of liver that is most likely etiology for hyperbilirubinemia - Received 1 dose of cefepime in ER, converted to meropenem and flagyl today. - Blood cultures growing gram negative bacilli at 24 hours - Previously has grown pseudomonas in cultures sensitive to levaquin, cipro, meropenem. - indeterminate to cefepime, weakly sensitive (<16) to zosyn - wound culture from oozing coccyx ulcer pending - GI input: abscess will require IR drainage for optimal treatment, will need to transfer to tertiary facility to follow through with this - urine culture pending. UA dirty sample, 1+LE with sediment, WBC, RBC - WBC further elevated to 22k, multiple febrile episodes up to 38.7C overnight - Tbili up to 5.5, Alk phos 722, AST 94, ALT 72 Anemia in setting of Crohn's disease - baseline hemoglobin 10, down to 7.8 on admission, 6.9 this AM - 1u leukoreduced pRBC ordered by night resident - will hold xarelto, will put on heparin sq for DVT ppx - FOBT positive from ostomy - continue iron supplement - discussed possible future requirement for transfusion and consent placed in c tripathi - pelvic hematoma decreased in size on CT a/p from previous - can consider repeat CT scan if worsening abdominal pain AGUILAR - worsening this morning up to Cr 1.96. likely secondary to hemolysis /sepsis in turn with Hg drop from 8.0 to 6.9 - fluid resuscitated with 2 L in ER - continuing NS @ 125 ml/hr - renally dosing all medications HLD - continue atorvastatin 20 mg daily Pain - home regimen of tylenol and dilaudid 2mg po Q4h continued, has not required narcotic support recently - zofran for nausea DVT ppx: heparin sq FEN/GI: Full Liquids, peach boost at every meal Dispo: transfer tertiary care pending Code Status: Full Code (2) AGUILAR (acute kidney injury): (3) Acute dehydration: (4) Cholestatic jaundice: (5) PFO (patent foramen ovale): (6) Crohn's disease: Admission and Anticipated Discharge Date Admission Date: December 24, 2020 Supervising Physician Co-Signing Physician Notes Attending attestation Pt seen and examined in concert with Dr. Lynn. In agreement with the documented findings as noted in the resident documentation with any exceptions or additions as noted here. Overall feeling of weakness has improved, though more shaky and tachypneic than previous. Intermittently febrile despite ABx and antipyretics On examination, S1/S2 nl RRR no MCG. CTAB. Abd TTP worse RUQ Sepsis w/ liver abscess in the setting of GB cancer s/p biliary stent placement - GI consultation - continue meropenem. Extensive time spent today coordianting time for transfer with working transfer process between [facility] and [facility], [facility] and [facility] [place] Anemia, chronic - noted decrease in Hgb requiring transfusion x 1 U PRBC. Tra nsfusion threshold at 7 or w/ sx. Trend q12h. AGUILAR present on admission - continues to downtrend - continue hydration and monitor, if persistent through PM, consider consultation nephrology Else see resident documentation as noted. Subjective feeling okay this morning. tolerating full fluid diet well. no complaints of lightheadedness/dizziness, tremoring resolved. updated on continuing plan to transfer to tertiary care [facility] as bed becomes available. Review of Systems Review of Systems: All systems reviewed & are unremarkable except as noted in Subjective Physical Exam Physical Exam: Constitutional: thin, cachectic, no longer rigor-ous, laying in bed. Eyes: EOMI, pupils equal and reactive bilaterally,+ BL scleral icterus Cardiac: Tachycardic, RR, no murmurs, gallops or rubs. Normal S1, S2 Pulm: CTA BL, no wheezes, rhonchi, crackles or rubs, moving air well throughout both lungs, no extra work of breathing Abd: soft, mildly tender at suprapubic region, nondistended, normal bowel sounds, no rebound or guarding. Ostomy draining black diarrhea. Extremities: 1+ peripheral pulses, no edema SKin: jaundiced, mildly improved skin turgor today Neuro: no focal deficits, moving all 4 limbs, A&Ox3 Results & Data Results & Data ([facility]) Vital Signs (Past 12 Hours) Vital Signs Temp Pulse Resp BP Pulse Ox 12/25/20 10:13 36.8 C 94 H 20 118/64 96 12/25/20 10:05 36.8 C 96 H 16 118/63 96 12/25/20 09:32 36.8 C 98 H 20 126/62 96 12/25/20 09:05 36.8 C 98 H 20 126/62 96 12/25/20 08:35 36.8 C 96 H 20 131/69 96 12/25/20 08:05 37.2 C 99 H 20 144/68 H 96 12/25/20 08:00 98 H 12/25/20 07:35 36.8 C 92 H 20 140/70 97 12/25/20 07:20 37.2 C 92 H 20 133/64 97 12/25/20 07:00 36.8 C 92 H 20 127/62 97 12/25/20 03:41 37.1 C 12/25/20 03:39 93 H 23 114/58 L 90 12/25/20 00:24 37.7 C H 12/25/20 00:22 98 H 21 120/53 L 96 12/25/20 00:20 94 H 12/25/20 00:00 91 H 21 CBC: AM labs showing Hg 6.9 CMP: total bili, AST elevating. Alk phos mildly decreased. Resident Activity Tracking Resident Involvement: Resident Care Provided Care Provided: Adult [facility] Medicine
[2020-12-25 11:56] LABS: Hematocrit (blood only) 29.8 % (37-47); Hemoglobin 9.7 g/dL (12.0-16.0); Mean Corpuscular Hemoglobin 29.1 pg (25-34); Mean Corpuscular Hgb Conc 32.6 g/dL (32-36); Mean Corpuscular Volume 89.5 fL (80-100); Mean Platelet Volume 10.6 fL (7.4-10.4); Nucleated RBC # (auto) 0.05 K/uL (0-0); Nucleated RBC % (auto) 0.2 %; Platelet Count 629 K/uL (130-400); RDW Coefficient of Variation 18.1 % (11.5-14.5); Red Blood Count 3.33 M/uL (4.2-5.4); White Blood Count 26.81 K/uL (4.8-10.8)
[2020-12-25 12:25] LABS: ALC (manual) 0.24 K/uL (1.2-3.4); ANC (manual) 26.09 K/uL (1.4-6.5); Lymphocytes # (manual) 0.24 K/uL (1.2-3.4); Lymphocytes % (manual) 0.9 %; Monocytes # (manual) 0.24 K/uL (0.11-0.59); Monocytes % (manual) 0.9 %; Myelocytes # (manual) 0.24 K/uL (0-0); Myelocytes % (manual) 0.9 %; Neutrophils # (manual) 26.09 K/uL (1.4-6.5); Neutrophils % (manual) 97.3 %
[2020-12-25 12:34] LABS: BUN Creatinine Ratio 20.5 (10-20); Calcium 9.2 mg/dl (8.5-10.1); Creatinine Clr Calc Pharmacy 21.7 ml/min; Est GFR (African American) 25.8; Est GFR (Non-African American) 22.2; Potassium 3.6 mmol/L (3.5-5.1)
[2020-12-25] MEDS: ACETAMINOPHEN 325 MG TAB PO PRN (15:34)
[2020-12-25] MEDS ORDERED: SODIUM CHLORIDE 0.9% 1000ML 1,000 ML IV SCH (17:45)
[2020-12-25] MEDS: RIVAROXABAN 10 MG TABLET PO SCH (20:23)
[2020-12-25] MEDS: ATORVASTATIN 20 MG TAB PO SCH (20:23)
[2020-12-26] MEDS: MEROPENEM 500 MG in SYRINGE 0 ML IV SCH (01:23)
--- NOTE | 2020-12-26 06:49 | Discharge Summary ---
Date of Service December 26, 2020 Admission HPI Per Admitting Provider Vicky Brunner is here with her for concern of progressive weakness. She was feeling weak and unable to walk up the stairs. She was shaking when she was drinking cold boost and Pedialyte. She has not been eating or drinking as well over the last couple days and had clear urine on Thursday but it has since become darker. She was eating well one week prior and notes that her appetite will come and go. She has gallbladder cancer and gets care here in [place] with Dr. Mckeon. She get chemotherapy for 2 weeks on and 1 week off. The plan was for her to have chemo start again on Thursday. She denies any itching of her skin. She had a stroke in 1999 and was found to have a PFO, was on Warfarin initially and then transitioned to Xarelto. Last dose of Xarelto was on 12/23 at 6PM. She had a intra-abdominal hematoma. Recent admission to [facility]: 11/11-11/17 and discharged on Levaquin/flagyl for ascending cholangitis Pfizer vaccine #2 2 weeks ago (she had a reaction of shaking X1 day with this) Social: denies ETOH, tobacoo, substance use Admission Exam Per Admitting Provider Vickyruss Brunner is here with her for concern of progressive weakness. She was feeling weak and unable to walk up the stairs. She was shaking when she was drinking cold boost and Pedialyte. She has not been eating or drinking as well over the last couple days and had clear urine on Thursday but it has since become darker. She was eating well one week prior and notes that her appetite will come and go. She has gallbladder cancer and gets care here in [place] with Dr. Mckeon. She get chemotherapy for 2 weeks on and 1 week off. The plan was for her to have chemo start again on Thursday. She denies any itching of her skin. She had a stroke in 1999 and was found to have a PFO, was on Warfarin initially and then transitioned to Xarelto. Last dose of Xarelto was on 12/23 at 6PM. She had a intra-abdominal hematoma. Recent admission to [facility]: 11/11-11/17 and discharged on Levaquin/flagyl for ascending cholangitis Pfizer vaccine #2 2 weeks ago (she had a reaction of shaking X1 day with this) Principal Diagnosis Liver Abscess, Gram negative sepsis Discharge Exam Constitutional: jaundiced, ill appearing Eyes: EOMI, pupils equal and reactive bilaterally, scleral icterus R>L Cardiac: tachycardic, RR, no murmurs, gallops or rubs. Normal S1, S2 Pulm: CTA BL, no wheezes, rhonchi, crackles or rubs, moving air well throughout both lungs, becoming progressively more tachypneic Abd: soft, TTP over suprapubic area, nondistended, normal bowel sounds, no rebound or guarding Extremities: 1+ peripheral pulses, no edema Neuro: no focal deficits, moving all 4 limbs, A&Ox3 Discharge Data Allergies Allergy/AdvReac Type Severity Reaction Status Date / Time Iodinated Contrast Media Allergy Severe Shortness Verified 12/23/20 21:30 of Breath bee venom protein (honey bee) Allergy Intermediate DYSPNEA/SWE Verified 12/23/20 21:30 LLING Penicillins Allergy Intermediate DYSPNEA/RENEA Verified 12/23/20 21:30 PHORESIS tramadol Allergy Unknown Nauseated Verified 12/23/20 21:30 codeine AdvReac Intermediate NAUSEA/VOMITING Verified 12/23/20 21:30 (TOLERATES VICODIN) oxycodone AdvReac Intermediate NAUSEA/VOMITING Verified 12/23/20 21:30 (TOLERATES VICODIN) sulfite AdvReac Intermediate GI sxs Verified 12/23/20 21:30 lactose AdvReac Verified 12/24/20 13:01 Consultations 12/23/20 22:24 ED Decision to Admit Stat 12/24/20 01:36 Consult Gastroenterology Routine Ordered Studies 12/23/20 23:09 CT abd pelvis wo con Urgent 12/23/20 23:43 CT chest diagnostic wo con Urgent Hospital Course (1) Sepsis: 75 yo F with extensive PMH including 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 infection. Sepsis 2/2 New Liver Abscess - Transferred to [facility] on 12/25/20 for interventional radiology drainage of abscess - CT A/P showing new 4.9 x 2.9 cm abscess of right lobe of liver that is most likely etiology for hyperbilirubinemia - Blood cultures growing Pseudomonas sensitive to meropenem, resistant to levaquin, intermediate to cefepime. - wound culture from oozing coccyx ulcer pending - urine culture negative - WBC further elevated to 22k, multiple febrile episodes up to 38.7C overnight prior to transfer - Tbili up to 5.5, Alk phos 722, AST 94, ALT 72 Anemia in setting of Crohn's disease s/p 1u pRBC transfusion - hg drop from 7.8 on admission to 6.9 - up to 9.7 with transfusion - positive FOBT in ostomy bag - pelvic hematoma smaller on CT A/P compared to previous AGUILAR: improved with fluid resuscitation Malnutrition: drinks peach boost with every meal All other medical conditions managed per home regimen. Transferred to [facility] for drainage of liver abscess by IR. (2) AGUILAR (acute kidney injury): (3) Acute dehydration: (4) Cholestatic jaundice: (5) PFO (patent foramen ovale): (6) Crohn's disease: Total Time Total Time Spent Total Time Spent (In Minutes): see attending attestation Discharge Plan Discharge Items Patient Disposition: Transfer Acute [facility] Reason For Visit: FATIGUE Discharge Diagnosis: Liver Abscess, Sepsis Activity: Per Instructions section Non-emergency contact: Primary Care Provider and Manager [employer] Call non-emergency contact if: you have any medication questions and your s ymptoms worsen Follow-up/Referrals: ProBrayan MD [Primary Care Provider] - Diet: Regular Addtl Attending Provider Instructions: (1) Sepsis: 75 yo F with extensive PMH including 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 infection. Sepsis 2/2 New Liver Abscess - Pending transfer to tertiary center for interventional radiology care ([facility]s pending to [facility] [place]) - CT A/P showing new 4.9 x 2.9 cm abscess of right lobe of liver that is most likely etiology for hyperbilirubinemia - Received 1 dose of cefepime in ER, converted to meropenem and flagyl today. - Blood cultures growing gram negative bacilli at 24 hours - Previously has grown pseudomonas in cultures sensitive to levaquin, cipro, meropenem. - indeterminate to cefepime, weakly sensitive (<16) to zosyn - wound culture from oozing coccyx ulcer pending - GI input: abscess will require IR drainage for optimal treatment, will need to transfer to tertiary facility to follow through with this - urine culture pending. UA dirty sample, 1+LE with sediment, WBC, RBC - WBC further elevated to 22k, multiple febrile episodes up to 38.7C overnight - Tbili up to 5.5, Alk phos 722, AST 94, ALT 72 Anemia in setting of Crohn's disease - baseline hemoglobin 10, down to 7.8 on admission, 6.9 this AM - 1u leukoreduced pRBC ordered by night resident - will hold xarelto, will put on heparin sq for DVT ppx - FOBT positive from ostomy - continue iron supplement - discussed possible future requirement for transfusion and consent placed in chart - pelvic hematoma decreased in size on CT a/p from previous - can consider repeat CT scan if worsening abdominal pain AGUILAR - worsening this morning up to Cr 1.96. likely secondary to hemolysis /sepsis in turn with Hg drop from 8.0 to 6.9 - fluid resuscitated with 2 L in ER - continuing NS @ 125 ml/hr - renally dosing all medications HLD - continue atorvastatin 20 mg daily Pain - home regimen of tylenol and dilaudid 2mg po Q4h continued, has not required narcotic support recently - zofran for nausea DVT ppx: heparin sq FEN/GI: Full Liquids, peach boost at every meal Dispo: transfer tertiary care pending Code Status: Full Code (2) AGUILAR (acute kidney injury): (3) Acute dehydration: (4) Cholestatic jaundice: (5) PFO (patent foramen ovale): (6) Crohn's disease: Pending Studies at Discharge: No Stand-Alone Forms: My [facility] Skilled Items Patient informed of condition?: Yes DNR: No Discharge Level of Care: Other Communicable Disease: No Discharge Prognosis: Stable Lines: Peripheral IV Urinary Catheter: No Medications and DC Order Prescriptions: New meropenem 500 mg Recon Soln 1,000 mg IV UD PRN (Reason: infection) Qty: 1 RF: 0 meropenem 1 gram recon soln 1,000 mg IV Q6H Qty: 1 RF: 0 metronidazole [Flagyl] 500 mg tablet 500 mg PO BID 10 Days Qty: 20 RF: 0 Continued cholecalciferol (vitamin D3) 5,000 unit capsule 5,000 units PO DAILY RF: 0 riboflavin (vitamin B2) 50 mg tablet 50 mg PO QAM RF: 0 ascorbic acid (vitamin C) 500 mg Tablet 500 mg PO DAILY Qty: 0 RF: 0 ferrous sulfate 325 mg (65 mg iron) Tablet 325 mg PO TIDM Qty: 0 RF: 0 epinephrine [EpiPen] 0.3 mg/0.3 mL auto-injector 0.3 mg IM Q4H PRN (Reason: Allergic Reaction) Qty: 1 RF: 3 cyanocobalamin (vitamin B-12) 1,000 mcg tablet 1,000 mcg PO 5XWK Qty: 0 RF: 0 magnesium oxide 400 mg (241.3 mg magnesium) tablet 400 mg PO TID Qty: 0 RF: 0 potassium chloride 20 mEq tablet,ER particles/crystals 20 meq PO BID RF: 0 hydromorphone 2 mg tablet 2 mg PO Q4 PRN (Reason: Pain) RF: 0 ondansetron 4 mg tablet,disintegrating 4 mg PO Q4 PRN (Reason: Nausea And Vomiting) RF: 0 atorvastatin 40 mg tablet 20 mg PO HS RF: 0 calcium carbonate-vitamin D3 [Calcium 500 + D] 500 mg(1,250mg) -200 unit tablet 2 tab PO BID RF: 0 multivitamin with minerals Tablet 1 tab PO BID RF: 0 esomeprazole magnesium 40 mg capsule,delayed release(DR/EC) 40 mg PO QAM RF: 0 rivaroxaban 10 mg tablet 10 mg PO QPM RF: 0 Discharge Orders: Discharge Order (Routine); Ordered 12/25/20 Ordered By: Mayra Lynn Admission Data Admit Date/Time: 12/24/20 00:09 Attending Provider: Keo Medina Admit Provider: Eric Reyes Primary Care Provider: Brayan Palma Other Providers: Lorenzo Cortes ; Mayra Lynn ; Raman Garcia Other Interventions: Discharge Summary Assessment (RN) Last Done: 12/26/20 03:12 Resident Activity Tracking Resident Involvement: Resident Care Provided Care Provided: Adult Hospital Medicine
--- NOTE | 2020-12-26 19:21 | Pharmacy Report ---
ED Pharmacist Culture FollowUP - Culture Follow Up Note Date of Service: December 26, 2020 Notes:: Received print out for blood cultures done on 12/23/20, 2/ aerobic bottles for Pseudomonas aeruginosa. Called and spoke with nursing staff at [facility] and relayed sensitivities, results also faxed to [phone] per request. Successful Fax email receipt
[2020-12-27 12:02] LABS: Dohle Bodies 1+; Toxic Granulation 1+; Toxic Vacuolation 1+
== END 2020-12-26 03:00 | disposition short-term general hospital (02) | DRG 871 ==
LOC: ED 20:31 → 1E 12-24 00:09 → SUATTDRO 12-24 00:09 → 1E 12-24 00:30 → 2S 12-25 19:28